=== PATIENT | female | born 2000 | race Caucasian/White ===

== ENCOUNTER 2021-03-19 15:58 | Inpatient (IN) | payer MEDICAID, SELFPAY ==
--- NOTE | 2021-03-19 16:30 | ED.C_ITS ---
HPI - Psych General: Chief Complaint: Psychiatric Symptoms Stated Complaint: HALLUCINATING/ VIOLENT Time Seen by Provider: 03/19/21 16:21 History of Present Illness: HPI Narrative: 20-year-old female comes in she is having auditory and visual hallucinations at home. She has been violent towards others. Here she is very difficult to get any responses from. She does have some inappropriate reactions at high. She denies homicidal ideation there are affidavits on the chart. She denies any auditory visual hallucinations. She denies being on any medications and states she has not previously been hospitalized for any psychiatric issues. MD complaint: altered mental status and other (violent behavior) Onset (ago): unknown Duration: constant History of same: Yes Relieving factors: none Exacerbating factors: none Associated psychiatric symptoms: homicidal ideation Associated symptoms: Reports auditory hallucinations, visual hallucinations and delusions Treatments prior to arrival: none Review of Systems Const: Denies: fever(s), chills, body aches, change in appetite, fatigue or malaise ENMT: Denies: throat pain, ear or mastoid pain, nasal discharge or nasal congestion Card: Denies: chest pain, edema, dyspnea on exertion or orthopnea Resp: Denies: dyspnea, productive cough or non-productive cough GI: Denies: abdominal pain, nausea, vomiting, hematemesis, diarrhea or constipation : Denies: flank pain, difficulty voiding, dysuria, urinary frequency or urinary urgency Skin/Breast: Denies: rash or pruritus Psych: Reports: visual hallucinations and auditory hallucinations Physical Exam Const: COMMON NORMALS: no acute distress GENERAL APPEARANCE: cooperative and comfortable ORIENTATION/CONSCIOUSNESS: Yes awake, Yes oriented to person, Yes oriented to place and Yes oriented to time HENMT: COMMON NORMALS: normocephalic, atraumatic and hearing grossly normal bilaterally HEAD & SCALP: normocephalic and atraumatic Neck/C-Spine: COMMON NORMALS: no JVD Resp: COMMON NORMALS: normal respiratory effort, No retractions, No use of accessory muscles and clear to auscultation bilaterally AUSCULTATION: clear to auscultation bilaterally Cardio: COMMON NORMALS: no JVD, regular rate, regular rhythm and No murmurs present (Cardio) RATE: regular rate RHYTHM: regular rhythm GI: COMMON NORMALS: Soft to palpation and No hepatosplenomegaly present AUSCULTATION: Yes normoactive bowel sounds PALPATION: Yes Soft to palpation, No Tenderness to palpation present (GI), No Guarding due to palpation present (GI) and Yes No hepatosplenomegaly present Extremity: COMMON NORMALS: normal to inspection, capillary refill normal, no clubbing, cyanosis or edema, no calf tenderness and no pedal edema Neuro: SENSORIUM/ORIENTATION: Yes oriented to person, Yes oriented to place and Yes oriented to time Psych: THOUGHT CONTENT: Yes delusions Skin: COMMON NORMALS: no rashes or lesions noted GENERAL SKIN EXAM: no rashes or lesions noted Course Vital Signs: Vital signs: Vital Signs Temperature 98.1 F 03/21/21 14:00 Pulse Rate 72 03/21/21 14:00 Respiratory Rate 18 03/22/21 06:00 Blood Pressure 99/66 03/21/21 14:00 Pulse Oximetry 98 03/21/21 14:00 MDM - Psych MDM Narrative: Medical decision making narrative: Patient acutely psychotic with auditory and visual hallucinations and occasional violent behaviors. Discussed with Dr. Figueroa will admit. Discharge Plan Discharge Patient Disposition: Admitted As Inpatient Admit Provider: Kade Figueroa Clinical Impression: Acute psychosis, Chronic schizophrenia Condition: Stable Coding Level of Care Code ED Power And Recovery Supervisor for Chg Fwd Exam Comprehensive
[2021-03-19 16:55] VITALS: BP 104/53; PULSE 83; RESP 18; TEMP 36.6; O2SAT 98; BMI 18.6
[2021-03-19 17:10] VITALS: BP 104/53; PULSE 83; RESP 18; TEMP 36.6; O2SAT 98
[2021-03-19 17:40] LABS: Basophils # 0.1 10^3/uL (0.0-0.1); Basophils % 0.5 %; Eosinophils # 0.2 10^3/uL (0.0-0.8); Eosinophils % 1.4 %; Hemoglobin 14.2 g/dL (11.5-15.3); Lymphocytes # 1.9 10^3/uL (1.5-6.5); Lymphocytes % 17.7 %; Mean Corpuscular HGB Conc 33.8 g/dL (30.0-36.0); Mean Corpuscular Hemoglobin 30.1 pg (28.0-34.0); Mean Corpuscular Volume 89.2 fl (81-99); Mean Platelet Volume 11.7 fL (7.4-10.4); Monocytes # 0.9 10^3/uL (0.2-0.9); Monocytes % 8.1 %; Neutrophils # 7.66 10^3/uL (1.8-8.0); Neutrophils % 71.9 %; Nucleated Red Blood Cells % 0 %; Platelet Count 266 10^3/cmm (130-400); Red Blood Count 4.71 10^6/uL (4.1-5.3); Red Cell Distribution Width 12.2 % (12.1-15.1); White Blood Count 10.7 10^3/uL (4.5-13.0)
[2021-03-19 18:02] LABS: Acetaminophen < 5.0 ug/mL (10-30); Alanine Aminotransferase 10 U/L (0-33); Albumin Level 4.4 g/dL (3.5-5.2); Alkaline Phosphatase 78 IU/L (35-105); Anion Gap 15.9 (5-19); Aspartate Amino Transferase 12 U/L (0-32); Blood Urea Nitrogen 9 mg/dL (6-20); Calcium 9.1 mg/dL (8.5-10.5); Carbon Dioxide 25 mmol/L (22-29); Chloride 106 mmol/L (98-107); Globulin 2.8 g/dL (1.3-4.6); Glomerular Filtration Rate 127.5 mL/min (90-130); Glucose 87 mg/dL (65-115); Osmolality Calculated 294 mOsm/kg (285-295); Potassium 3.9 mmol/L (3.5-5.1); Salicylate < 0.3 mg/dL (3-10); Sodium 143 mmol/L (136-145); Total Bilirubin 0.4 mg/dL (0.15-1.2); Total Protein 7.2 g/dL (6.6-8.7)
--- NOTE | 2021-03-19 18:02 | PC.NURSE ---
called report to adams love
[2021-03-19 18:05] LABS: HCG, Serum Qual Negative (Negative)
--- NOTE | 2021-03-19 20:54 | PC.NURSE ---
Admission 20-year-old female comes in she is having auditory and visual hallucinations at home. She has been violent towards others. Here she is very difficult to get any responses from. She does have some inappropriate reactions at high. She denies homicidal ideation there are affidavits on the chart. She denies any auditory visual hallucinations. She denies being on any medications and states she has not previously been hospitalized for any psychiatric issues. On unit patient remains the same. Responses to questions are very delayed and usually a vauge no. Denies any AVH but appears to be experiencing internal stimuli. Denies any AVH. Denies having a diagnosis. Denies being on meds. Denies any substance or alcohol use ever. Has poor eye contact, stares blankly. Bilateral feet have red bug bites , none are open, denies itching. After admission assessment patient went to bed and is currently resting with eyes closed.
[2021-03-19 20:56] VITALS: BP 88/54; PULSE 61; RESP 14; TEMP 36.6; O2SAT 98
[2021-03-20 06:00] VITALS: BP 93/57; PULSE 63; RESP 15; TEMP 36.8; O2SAT 96
--- NOTE | 2021-03-20 06:06 | PC.NURSE ---
Patient has remained in bed throughout night, resting with eyes closed.
--- NOTE | 2021-03-20 13:24 | NPU.GN ---
[facility] Topic: Coping Checkers General Mood of Group: Evonne did not attend group today. She was sleeping. This process description writer tried to engage with patient about [facility] services and client is not mentally capable at this time to even hold a conversation, decide anything, or deal with paperwork. She would vaguely respond and then smile and started laughing in the middle of conversation, and she tilts her head and looks way as she is having auditory or maybe visual hallucinations maybe both. She is in no mental state to make any decisions at this time and is not mentally stable at this time.
[2021-03-20 14:00] VITALS: BP 99/66; PULSE 72; RESP 18; TEMP 36.7; O2SAT 98
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
--- NOTE | 2021-03-20 17:37 | PC.NURSE ---
Patient [place] Asked patient if she wanted some water, but asked if we had some blood. Asked patient if is was a vampire and she just giggled. Patient was using her spork from dinner to write with mustard from her tray.
[2021-03-20] MEDS: lithium carbonate 300 mg Capsule PO (18:17)
--- NOTE | 2021-03-20 18:38 | PC.NURSE ---
Patient standing in hallway in front of the nurses station. Holding her right breast with a finger tapping her chin. Asked her if she needing anything. She did not respond. Asked her if she knew where she was, she responded no. Asked if she knew what day it was or how she got here, she shook her head. Briefly re-oriented her to time. place and situation.
[2021-03-20 20:07] VITALS: RESP 15
--- NOTE | 2021-03-20 20:07 | PC.NURSE ---
Pt. refused vitals.
--- NOTE | 2021-03-20 22:22 | PC.NURSE ---
Patient continues to have bizarre thought process this evening. Only spoke to this nurse when directly questioned. Answers continue to be delayed and pressured. Initially requested meds for anxiety and sleep but refused after meds were taken to patient. Patient gives blank stare most of time that nurse speaks about care. Patient awake, resting in bed at this time.
--- NOTE | 2021-03-21 00:25 | PC.NURSE ---
Patient up. Attempted to go into another patient's room. Was resistive to staff redirection. Appears paranoid at this time. Did come away from room after much encouragement. Stated she was very tired but would not go to her bed. Patient sitting at unit phone talking into phone that is presently turned off.
[2021-03-21 06:00] VITALS: RESP 15
[2021-03-21] MEDS: lithium carbonate 300 mg Capsule PO ×2 (07:56→17:41)
--- NOTE | 2021-03-21 10:37 | PC.NURSE ---
med refusal pt refused to take her abilify this morning, nurse taught pt about the med, still refused, may take later today she stated. will continue to monitor pt.
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
[2021-03-21 14:00] VITALS: BP 99/66; PULSE 72; RESP 15; TEMP 36.7; O2SAT 98
[2021-03-21 19:56] VITALS: RESP 18
[2021-03-22 06:00] VITALS: RESP 18
--- NOTE | 2021-03-22 06:30 | PC.NURSE ---
REFUSED VITALS Patient refused vitals. Respirations were taken.
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
--- NOTE | 2021-03-22 13:10 | NPU.GN ---
[facility] Topic:Coping Skills AMY General Mood of Group:The patient did come to group, the patient did participate to an extent, She was very quiet. She was dressed and well groomed. She was coerced to participate, she did not participate on her own free will.
[2021-03-22] MEDS: nicotine 2 mg Gum BUCCAL (13:17)
[2021-03-22 14:00] VITALS: BP 99/66; PULSE 72; RESP 18; TEMP 36.7; O2SAT 98
[2021-03-22] MEDS: lithium carbonate 300 mg Capsule PO ×2 (14:49→20:15)
[2021-03-22 21:33] VITALS: RESP 17
--- NOTE | 2021-03-22 21:34 | PC.NURSE ---
REFUSED VITALS Patient refused vitals. Respirations were taken
[2021-03-23 06:00] VITALS: RESP 17
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
[2021-03-23 14:00] VITALS: BP 117/72; PULSE 90; RESP 18; TEMP 36.8; O2SAT 97
--- NOTE | 2021-03-23 15:13 | PC.NURSE ---
Patient Refused all meds today. Patient has refused all meds today. Patient then came to the nurses station and stated that she feels well and wants to know what she needs to do to go home. Staff stated she needs to take medications. This will help patients mood and well-being. Patient told staff to Go fuck yourselves . And walked away from nurses station.
[2021-03-23] MEDS: lithium carbonate 300 mg Capsule PO ×2 (18:36→21:09)
[2021-03-23 20:51] VITALS: RESP 18
[2021-03-23] MEDS: trazodone 50 mg Tablet PO (21:09)
[2021-03-23] MEDS: hyDROXYzine 25 mg Capsule 50 MG PO (22:43)
--- NOTE | 2021-03-23 23:07 | PC.NURSE ---
Pt observed sitting on her bed with her door open naked. Patient was in view of peers that were walking in the hallway. Patient instructed to put her scrubs back and her door was shut by staff. This Nurse went to pt's room and she still was not dressed. This Nurse spoke with patient regarding her affect on the other patient's by putting them in a situation to see her without clothes. Patient eventually agreed to put her scrubs back on. she was also compliant with med administration this shift. No other behavior issues after this incident.
[2021-03-24 06:00] VITALS: RESP 17; BMI 18.6
[2021-03-24] MEDS: ARIPiprazole 10 mg Tablet 5 MG PO (09:35)
[2021-03-24] MEDS: lithium carbonate 300 mg Capsule PO ×3 (09:36→21:08)
--- NOTE | 2021-03-24 13:35 | PC.NURSE ---
Patient lying in bed with eyes closed, nude with sheet wrapped around her mid-section, able to see her legs, arms and back. Instructed patient she needed to dress due to the males on the unit, for her safety. She verbalized she understood and that she would comply.
[2021-03-24 14:00] VITALS: BP 106/64; PULSE 75; RESP 16; TEMP 36.2; O2SAT 97
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
[2021-03-24 21:01] VITALS: RESP 15
[2021-03-25 06:00] VITALS: BP 108/68; PULSE 80; RESP 15; TEMP 36.6; O2SAT 96
[2021-03-25] MEDS: ARIPiprazole 10 mg Tablet 5 MG PO (09:59)
[2021-03-25] MEDS: lithium carbonate 300 mg Capsule PO ×3 (10:00→20:30)
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
--- NOTE | 2021-03-25 13:35 | NPU.GN ---
[facility] Topic:Psychiatric Education General Mood of Group: Evonne did attend or participate in group today. Evonne does not seem to be mentally stable she is very soft spoken and is timid and stays to her self. She did participate in group with the aide of this racebook writer.
[2021-03-25 14:00] VITALS: BP 110/69; PULSE 70; RESP 16; TEMP 36.7; O2SAT 100
[2021-03-25 21:22] VITALS: BP 98/57; PULSE 70; RESP 15; TEMP 37.2; O2SAT 98
[2021-03-26 06:00] VITALS: RESP 16
--- NOTE | 2021-03-26 12:45 | NPU.GN ---
[facility] Topic:roup Topic: What are we Thankful For General Mood of Group: Evonne did attend and participated in group activity today. Evonne seemed to be able to hold more conversation and be more oriented with this advertising copywriter and on group activity and topic today. This advertising copywriter has seen some improvement with this patient demeanor and mental status.
[2021-03-26 14:00] VITALS: BP 118/76; PULSE 81; RESP 16; TEMP 36.8; O2SAT 98
--- NOTE | 2021-03-26 14:11 | PC.NURSE ---
med refusal Pt refused to take morning meds lithium and abilify. Have tried to redirect and pass the medications again, failed a second time. Will continue to monitor.
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
[2021-03-26] MEDS: nicotine 2 mg Gum BUCCAL (17:55)
[2021-03-26] MEDS: lithium carbonate 300 mg Capsule PO (17:55)
[2021-03-26 21:49] VITALS: RESP 15
[2021-03-27 06:00] VITALS: BP 99/68; PULSE 92; RESP 15; TEMP 36.8; O2SAT 99
[2021-03-27] MEDS: lithium carbonate 300 mg Capsule PO ×2 (12:27→20:28)
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
--- NOTE | 2021-03-27 13:18 | NPU.GN ---
[facility] Topic:Group Topic: Pie of Emotions, Coping, and Supports General Mood of Group: Evonne did attend group. She did not participate as she starred off into air or out the window. Evonne seemed less alert or social today in group.
[2021-03-27 14:00] VITALS: BP 120/79; PULSE 104; RESP 18; TEMP 36.6; O2SAT 97
[2021-03-27] MEDS: ARIPiprazole Maintena 400 MG IM (15:38)
[2021-03-27 21:06] VITALS: BP 113/76; PULSE 100; RESP 16; O2SAT 99
[2021-03-28 06:00] VITALS: RESP 16
[2021-03-28] MEDS: ARIPiprazole 10 mg Tablet 5 MG PO (08:52)
[2021-03-28] MEDS: lithium carbonate 300 mg Capsule PO ×3 (08:52→20:42)
[2021-03-28 14:00] VITALS: BP 116/68; PULSE 98; RESP 16; TEMP 36.7; O2SAT 99
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
--- NOTE | 2021-03-28 16:34 | PC.NURSE ---
Patient attempting to make phone call and then began banging ip network architect on phone and wall multiple times. Went out to talk with patient and she was upset because her mother was not answering the phone, and occasional random statements. I can't get my medicine because I'm not 21. My mom says she'll take all of her savings and get me a townhouse. No one is coming to pick me up I need a ride.
--- NOTE | 2021-03-28 17:43 | PC.NURSE ---
My parents don't trust me anymore so I can't go home because I smoke cigarettes. You can just give me blanket and I can leave. I'm an adult since I'm 18. Patient keeps staring at ceiling and repeating 'I just need'. I don't need sleep, I need a blanket long pause 'A blanket, a bible and a prescription and I can find somewhere to live.
[2021-03-28 19:16] VITALS: BP 112/70; PULSE 96; RESP 18; TEMP 36.7; O2SAT 100
[2021-03-28] MEDS: hyDROXYzine 25 mg Capsule 50 MG PO (20:42)
[2021-03-28] MEDS: trazodone 50 mg Tablet PO (20:43)
[2021-03-29 05:36] VITALS: RESP 16
[2021-03-29] MEDS: lithium carbonate 300 mg Capsule PO ×3 (09:47→20:26)
[2021-03-29] MEDS: ARIPiprazole 10 mg Tablet 5 MG PO (09:47)
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
[2021-03-29 14:00] VITALS: BP 96/61; PULSE 105; RESP 20; TEMP 37; O2SAT 97
[2021-03-29] MEDS: hyDROXYzine 25 mg Capsule 50 MG PO (20:26)
[2021-03-29 20:29] VITALS: RESP 18
[2021-03-29] MEDS: trazodone 50 mg Tablet PO (22:11)
[2021-03-30 06:00] VITALS: RESP 15
[2021-03-30] MEDS: ARIPiprazole 10 mg Tablet 5 MG PO (10:24)
[2021-03-30] MEDS: lithium carbonate 300 mg Capsule PO ×3 (10:24→21:42)
[2021-03-30 14:00] VITALS: RESP 18
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
[2021-03-30] MEDS: lurasidone 20 mg Tablet PO (17:38)
--- NOTE | 2021-03-30 17:40 | PC.NURSE ---
patient refused vitals.
[2021-03-30 19:44] VITALS: BP 92/57; PULSE 93; RESP 17; TEMP 36.7; O2SAT 98
[2021-03-30] MEDS: trazodone 50 mg Tablet PO (21:42)
[2021-03-30] MEDS: hyDROXYzine 25 mg Capsule 50 MG PO (21:42)
[2021-03-31 06:00] VITALS: RESP 16; BMI 18.6
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
[2021-03-31] MEDS: lithium carbonate 300 mg Capsule PO ×3 (10:13→21:05)
[2021-03-31 14:00] VITALS: BP 112/72; PULSE 90; RESP 17; TEMP 36.2; O2SAT 99
[2021-03-31] MEDS: lurasidone 20 mg Tablet PO (18:17)
[2021-03-31] MEDS: trazodone 50 mg Tablet PO (21:21)
[2021-03-31 21:40] VITALS: BP 109/74; PULSE 105; RESP 18; TEMP 36.9; O2SAT 96
--- NOTE | 2021-03-31 21:44 | PC.NURSE ---
Patient was standing in the dayroom eating a bag of popcorn for snack. Staff asked patient if it was okay to get her vitals patient agreed and was cooperative. Staff asked patient how her day was and patient replied, It was good day. I talked to the Doctor more today. Staff told patient was good that she was finely talking more. Patient was very happy and smiling and overall in a good mood. Patient also stated, I feel better. I feel more above the surface. Staff agreed with the patient that she does seem in a better mood and is talking more to staff and talking more about her feeling with staff.
[2021-04-01 06:00] VITALS: BP 101/67; PULSE 85; RESP 18; TEMP 36.9; O2SAT 95
[2021-04-01] MEDS: lithium carbonate 300 mg Capsule PO ×3 (09:35→20:33)
[2021-04-01] MEDS: hyDROXYzine 25 mg Capsule 50 MG PO (12:03)
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
[2021-04-01 14:00] VITALS: BP 133/77; PULSE 76; RESP 18; TEMP 36; O2SAT 98
--- NOTE | 2021-04-01 14:21 | NPU.GN ---
[facility] Topic:Coping Mechanisms General Mood of Group: Evonne did attend and participate in group. She was her normal quiet and often smiled self. Her hygiene was good.
[2021-04-01] MEDS: lurasidone 20 mg Tablet 40 MG PO (17:50)
[2021-04-01 21:21] VITALS: RESP 16
[2021-04-02 06:35] VITALS: BP 112/70; PULSE 80; RESP 16; TEMP 36.9; O2SAT 98
[2021-04-02] MEDS: lithium carbonate 300 mg Capsule PO ×3 (09:40→21:08)
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
--- NOTE | 2021-04-02 13:38 | NPU.GN ---
[facility] Topic:Depression [place] General Mood of Group: Evonne did attend and participate in group. She was very quiet in group and her demeanour has not changed. She had good hygiene.
[2021-04-02 14:00] VITALS: BP 114/77; PULSE 94; RESP 18; TEMP 36; O2SAT 99
[2021-04-02] MEDS: lurasidone 20 mg Tablet 40 MG PO (17:10)
[2021-04-02] MEDS: trazodone 50 mg Tablet PO (21:36)
[2021-04-02 22:00] VITALS: RESP 17
[2021-04-03 06:00] VITALS: RESP 15
[2021-04-03 07:52] LABS: Lithium 0.7 mmol/L (0.6-1.2)
[2021-04-03 08:31] LABS: Thyroid Stimulating Hormone 1.39 uIU/mL (0.27-4.20)
[2021-04-03] MEDS: lithium carbonate 300 mg Capsule PO ×3 (10:16→20:35)
--- NOTE | 2021-04-03 13:30 | NPU.GN ---
[facility] Topic:[place] Activity General Mood of Group: Evonne did not attend group this morning as she was walking around the halls.
[2021-04-03 14:00] VITALS: BP 114/77; PULSE 94; RESP 15; TEMP 36; O2SAT 99
[2021-04-03 14:09] VITALS: BP 104/63; PULSE 79; RESP 16; TEMP 36.2; O2SAT 97
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
[2021-04-03] MEDS: lurasidone 20 mg Tablet 40 MG PO (17:52)
[2021-04-03 22:00] VITALS: RESP 15
[2021-04-04 06:00] VITALS: RESP 15
[2021-04-04] MEDS: lithium carbonate 300 mg Capsule PO ×3 (09:01→21:18)
[2021-04-04 14:00] VITALS: PULSE 104; RESP 16; TEMP 36.9; O2SAT 99
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
[2021-04-04] MEDS: lurasidone 20 mg Tablet 40 MG PO (18:21)
[2021-04-04 21:24] VITALS: RESP 18
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
[2021-04-05 06:00] VITALS: RESP 16
[2021-04-05] MEDS: lithium carbonate 300 mg Capsule PO ×3 (08:46→21:05)
[2021-04-05 14:00] VITALS: BP 114/69; PULSE 98; RESP 16; TEMP 36.9; O2SAT 98
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
[2021-04-05] MEDS: lurasidone 20 mg Tablet 40 MG PO (16:50)
[2021-04-05 21:13] VITALS: BP 120/74; PULSE 87; RESP 18; TEMP 37; O2SAT 99
[2021-04-06 06:00] VITALS: BP 116/74; PULSE 88; RESP 18; TEMP 36.8; O2SAT 97
[2021-04-06] MEDS: lithium carbonate 300 mg Capsule PO ×3 (08:47→20:44)
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
[2021-04-06 14:00] VITALS: BP 99/59; PULSE 87; RESP 17; TEMP 37.1; O2SAT 96
[2021-04-06] MEDS: lurasidone 20 mg Tablet 40 MG PO (16:20)
[2021-04-06 22:00] VITALS: RESP 17
[2021-04-07 05:35] VITALS: BMI 18.6
[2021-04-07 06:00] VITALS: RESP 16
[2021-04-07] MEDS: lithium carbonate 300 mg Capsule PO ×3 (07:51→20:22)
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
[2021-04-07 14:00] VITALS: BP 108/60; PULSE 77; RESP 20; TEMP 36.9; O2SAT 95
[2021-04-07 20:05] VITALS: RESP 16
[2021-04-07] MEDS: trazodone 50 mg Tablet PO (20:21)
[2021-04-07] MEDS: hyDROXYzine 25 mg Capsule 50 MG PO (20:21)
--- NOTE | 2021-04-07 20:25 | PC.NURSE ---
pt requested sleep and anxiety meds. trazodone 50mg po for sleep and vistaril 50mg po for anxiety given.
--- NOTE | 2021-04-07 22:00 | PC.NURSE ---
pt resting quietly with both eyes closed.
[2021-04-08 06:00] VITALS: BP 130/84; PULSE 75; RESP 17; O2SAT 97
[2021-04-08] MEDS: lithium carbonate 300 mg Capsule PO ×3 (09:04→19:51)
[2021-04-08 14:00] VITALS: BP 106/69; PULSE 81; RESP 16; TEMP 36.6; O2SAT 98
[2021-04-08] MEDS: lurasidone 80 mg Tablet PO (16:31)
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
[2021-04-08] MEDS: nicotine 2 mg Gum BUCCAL (18:35)
[2021-04-08 21:38] VITALS: RESP 15
[2021-04-09] MEDS: nicotine 2 mg Gum BUCCAL ×2 (05:25→20:08)
[2021-04-09 06:00] VITALS: RESP 16
[2021-04-09] MEDS: lithium carbonate 300 mg Capsule PO ×3 (08:25→20:07)
[2021-04-09 14:00] VITALS: BP 92/54; PULSE 82; RESP 16; TEMP 36.6; O2SAT 97
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
[2021-04-09] MEDS: lurasidone 80 mg Tablet PO (17:56)
[2021-04-09] MEDS: trazodone 50 mg Tablet PO (20:08)
[2021-04-09 21:16] VITALS: BP 118/81; PULSE 98; RESP 16; O2SAT 98
[2021-04-10 06:00] VITALS: BP 112/84; PULSE 78; RESP 17; O2SAT 97
[2021-04-10] MEDS: lithium carbonate 300 mg Capsule PO ×3 (08:43→20:57)
[2021-04-10 14:00] VITALS: BP 116/60; PULSE 90; RESP 16; TEMP 36.7; O2SAT 100
[2021-04-10] MEDS: lurasidone 80 mg Tablet PO (16:20)
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
[2021-04-10] MEDS: nicotine 2 mg Gum BUCCAL (20:56)
[2021-04-10] MEDS: hyDROXYzine 25 mg Capsule 50 MG PO (20:57)
[2021-04-10 22:00] VITALS: BP 104/68; PULSE 109; RESP 18; TEMP 36.5; O2SAT 99
[2021-04-11 06:00] VITALS: BP 106/57; PULSE 86; RESP 18; TEMP 36.3; O2SAT 96
[2021-04-11] MEDS: lithium carbonate 300 mg Capsule PO ×3 (08:58→21:05)
[2021-04-11 13:43] VITALS: BP 85/52; PULSE 100; RESP 17; TEMP 36.5; O2SAT 98
[2021-04-11] MEDS: lurasidone 20 mg Tablet 40 MG PO (17:46)
[2021-04-11] MEDS: lurasidone 80 mg Tablet PO (17:47)
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
[2021-04-11] MEDS: hyDROXYzine 25 mg Capsule 50 MG PO (21:05)
[2021-04-11 22:00] VITALS: BP 85/52; PULSE 100; RESP 17; TEMP 36.5; O2SAT 98
[2021-04-12 00:06] VITALS: RESP 16
[2021-04-12 06:00] VITALS: RESP 16
[2021-04-12] MEDS: lithium carbonate 300 mg Capsule PO ×3 (09:01→21:28)
[2021-04-12 13:12] VITALS: BP 92/60; PULSE 84; RESP 17; TEMP 36.8; O2SAT 97
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
[2021-04-12] MEDS: lurasidone 20 mg Tablet 40 MG PO (16:08)
[2021-04-12] MEDS: lurasidone 80 mg Tablet PO (16:09)
[2021-04-12 19:53] VITALS: BP 108/62; PULSE 77; RESP 16; TEMP 36.4; O2SAT 97
[2021-04-12] MEDS: hyDROXYzine 25 mg Capsule 50 MG PO (21:28)
[2021-04-13 06:00] VITALS: BP 107/55; PULSE 76; RESP 14; TEMP 36.7; O2SAT 97
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
[2021-04-13] MEDS: lithium carbonate 300 mg Capsule PO ×3 (08:55→21:06)
[2021-04-13 14:00] VITALS: BP 110/63; PULSE 89; RESP 16; TEMP 37.1; O2SAT 97
[2021-04-13] MEDS: lurasidone 80 mg Tablet PO (16:25)
[2021-04-13] MEDS: lurasidone 20 mg Tablet 40 MG PO (16:25)
[2021-04-13] MEDS: trazodone 50 mg Tablet PO (21:06)
[2021-04-13 21:18] VITALS: BP 89/58; PULSE 93; RESP 18; TEMP 36.8; O2SAT 97
[2021-04-14 06:00] VITALS: BP 80/58; PULSE 77; RESP 18; TEMP 36.8; O2SAT 99; BMI 18.6
[2021-04-14] MEDS: lithium carbonate 300 mg Capsule PO ×3 (08:36→20:54)
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
[2021-04-14] MEDS: nicotine 2 mg Gum BUCCAL (10:44)
[2021-04-14 14:00] VITALS: BP 105/74; PULSE 96; RESP 20; TEMP 36.5; O2SAT 99
[2021-04-14] MEDS: lurasidone 20 mg Tablet 40 MG PO (16:24)
[2021-04-14] MEDS: lurasidone 80 mg Tablet PO (16:24)
[2021-04-14 20:25] VITALS: BP 101/58; PULSE 87; RESP 16; TEMP 36.9; O2SAT 99
[2021-04-15 06:00] VITALS: BP 93/50; PULSE 85; RESP 16; TEMP 36.7; O2SAT 98
[2021-04-15] MEDS: nicotine 2 mg Gum BUCCAL (08:47)
[2021-04-15] MEDS: lithium carbonate 300 mg Capsule PO ×2 (08:47→14:40)
--- NOTE | 2021-04-15 12:39 | NPU.GN ---
[facility] Group Topic:[place] / Discussion General Mood of Group: Evonne did not attend group this morning she wanted to sleep. This functional tester typewriters did meet with Evonne after lunch and started the [facility] New Patient paper work packet. It is not completed as she just randomly got up left and went and laid down for a nap. This functional tester typewriters spoke with social work and gave the update on patient. toll test desk worker is going to try to complete the [facility] New Patient Paperwork with patient.
[2021-04-15 14:00] VITALS: BP 99/65; PULSE 87; RESP 18; TEMP 36.8; O2SAT 98
[2021-04-15] MEDS: lurasidone 80 mg Tablet PO (16:16)
[2021-04-15] MEDS: lurasidone 20 mg Tablet 40 MG PO (16:16)
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
[2021-04-15 17:23] VITALS: BP 99/65; PULSE 87; RESP 18; TEMP 36.8; O2SAT 98
== END 2021-04-15 17:37 | disposition home or self-care (01) | DRG 885 ==
LOC: ER 17:11 → NP 17:29
PROVIDERS: Physician Assistant; Psychiatry & Neurology Psychiatry; Admitting Provider Psychiatry & Neurology Psychiatry; Emergency Provider Family Medicine; Visit Provider Psychiatry & Neurology Psychiatry
DX: F23 Brief psychotic disorder (principal); R45.6 Violent behavior; Z62.819 Personal history of unspecified abuse in childhood; Z62.898 Other specified problems related to upbringing; Z91.14 Patient's other noncompliance with medication regimen
CPT/HCPCS: 36415; 80053; 80178; 80307; 84443; 84703; 85025; 96372; 97150; 97165; 99285

== ENCOUNTER → 2021-05-01 11:55 | Outpatient (BNVA) | payer MEDICAID, SELFPAY | PROVIDERS: Visit Provider Nurse Practitioner | DX: F20.89 Other schizophrenia (principal); F17.210 Nicotine dependence, cigarettes, uncomplicated | CPT/HCPCS: 99215 ==

== ENCOUNTER → 2021-05-31 13:34 | Outpatient (BNVA) | payer MEDICAID, SELFPAY | PROVIDERS: Visit Provider Nurse Practitioner | DX: F20.89 Other schizophrenia (principal); F17.210 Nicotine dependence, cigarettes, uncomplicated | CPT/HCPCS: 99214 ==

== ENCOUNTER 2022-01-08 15:45 | Inpatient (IN) | payer MEDICAID, SELFPAY ==
[2022-01-08 15:54] VITALS: BP 94/63; PULSE 93; RESP 16; TEMP 36.7; O2SAT 98
--- NOTE | 2022-01-08 16:14 | ED.C_ITS ---
Documented by User: AUSTIN Brumfield 01/09/22 08:34 HPI - Psych General: Chief Complaint: Psychiatric Symptoms Stated Complaint: Psych eval Time Seen by Provider: 01/08/22 16:14 History of Present Illness: Patient is a 21-year-old female who comes to the ED via EMS for psych evaluation. History of acute psychosis and schizophrenia. Patient states she got into a fight with her mother today at home. Mother called EMS and had patient brought here to the ED for evaluation. Patient is a poor historian and is giving very short answers. She states that she does not currently take any medications. She denies HI and SI. Associated symptoms: Deny auditory hallucinations, homicidal ideation or suicidal ideation Review of Systems Const: Denies: fever(s), chills or fatigue Eyes: Denies: change in vision or eye discomfort ENMT: Denies: throat pain, odynophagia, nasal discharge or nasal congestion Card: Denies: chest pain, palpitations, edema, swelling of feet/ankles, dyspnea on exertion or orthopnea Resp: Denies: dyspnea, productive cough or non-productive cough GI: Denies: abdominal pain, nausea, vomiting, diarrhea, constipation or hematochezia : Denies: flank pain, dysuria or hematuria Musc: Denies: neck pain, back pain or extremity swelling Skin/Breast: Denies: rash or new lesions Neuro: Denies: headache(s), numbness in extremities or weakness in extremities Psych: Denies: auditory hallucinations, suicidal ideation or homicidal ideation PFS ED PFSH: Medical History Nicotine dependence, cigarettes, uncomplicated Other schizophrenia Psychiatric care Family History Other Diabetes Social History Smoking and tobacco status: current every day smoker cigarettes Packs smoked per day: 1 Years cigarettes smoked: 3 Second hand smoke exposure: Yes Alcohol intake: never Adopted: No Caregiver/support person: No Lives independently: No Household members: other Details: grandmother Housing: House Marital status: Single Number of children: 0 Highest education level completed: High School Graduate service: No Current occupational status: disabled Current occupational exposures/hazards: No Pets and animals: Yes Pets & animals: dog(s) History of recent travel: No Leisure activites: art and reading Sexually active: No Current gender identity: Female Arabella/Bahai: None Special arabella needs: No Agree to transfusion: Yes Financial difficulty paying for basics: Not Very Hard Female Reproductive History: Date of last menstrual period: 08/09/21 Spontaneous abortions: No Physical Exam Const: COMMON NORMALS: patient oriented x3 and alert GENERAL APPEARANCE: cooperative HENMT: COMMON NORMALS: normocephalic HEAD & SCALP: normocephalic MOUTH: Normal oral and palatal mucosa present THROAT: posterior oropharynx normal and uvula midline Neck/C-Spine: COMMON NORMALS: supple GENERAL: Yes normal visual inspection Resp: COMMON NORMALS: normal respiratory effort, No retractions, No use of accessory muscles and clear to auscultation bilaterally AUSCULTATION: clear to auscultation bilaterally Cardio: COMMON NORMALS: regular rate, regular rhythm, S1 normal heart sound present, S2 normal heart sound present, No gallops present (Cardio), No clicks present (Cardio), No murmurs present (Cardio) and Peripheral pulses 2+ throughout RATE: regular rate RHYTHM: regular rhythm HEART SOUNDS: S1 normal heart sound present and S2 normal heart sound present PERIPHERAL PULSES: Peripheral pulses 2+ throughout GI: COMMON NORMALS: Normal to inspection, nondistended, normoactive bowel sounds present, Soft to palpation, non-tender and no masses PALPATION: Yes Soft to palpation : COMMON NORMALS: Yes no CVA tenderness BLADDER/KIDNEY EXAM: Yes no CVA tenderness Back/Pelvis: COMMON NORMALS: no CVA tenderness Extremity: COMMON NORMALS: normal to inspection Neuro: COMMON NORMALS: patient oriented x3 SENSORIUM/ORIENTATION: Yes alert GAIT: Yes Normal gait present Psych: COMMON NORMALS: mental status grossly normal and speech normal APPEARANCE: Yes grossly normal ATTITUDE: Yes calm and Yes Withdrawn affect present ACTIVITY/MOTOR BEHAVIOR: Yes Avoids eye contact (attititude/behavior) SPEECH: Yes normal speech MOOD & AFFECT: Yes Flat affect present THOUGHT CONTENT: No Suicidality present and No Homicidality present Skin: GENERAL SKIN EXAM: dry skin Course Vital Signs: Vital signs: Vital Signs Temperature 98.2 F 01/09/22 06:00 Pulse Rate 113 H 01/09/22 06:00 Respiratory Rate 18 01/09/22 06:00 Blood Pressure 138/76 01/08/22 22:00 Pulse Oximetry 96 01/09/22 06:00 Oxygen Delivery Me thod 01/08/22 22:00 MDM - Psych Lab Data I reviewed the patient's lab results. : 01/08/22 16:24 01/08/22 16:24 Laboratory Results WBC 12.1 10^3/uL (4.0-10.0) H 01/08/22 16:24 RBC 4.60 10^6/uL (4.1-5.3) 01/08/22 16:24 Hgb 14.3 g/dL (11.5-15.3) 01/08/22 16:24 Hct 41.6 % (37.0-47.0) 01/08/22 16:24 MCV 90.4 fl (81-99) 01/08/22 16:24 MCH 31.1 pg (28.0-34.0) 01/08/22 16:24 MCHC 34.4 g/dL (30.0-36.0) 01/08/22 16:24 RDW 12.4 % (12.1-15.1) 01/08/22 16:24 Plt Count 248 10^3/cmm (130-400) 01/08/22 16:24 MPV 10.8 fL (7.4-10.4) H 01/08/22 16:24 Neut % (Auto) 70.7 % 01/08/22 16:24 Lymph % (Auto) 18.7 % 01/08/22 16:24 [place] % (Auto) 8.3 % 01/08/22 16:24 Eos % (Auto) 1.7 % 01/08/22 16:24 Baso % (Auto) 0.3 % 01/08/22 16:24 Neut # (Auto) 8.54 10^3/uL (1.8-7.7) H 01/08/22 16:24 Lymph # (Auto) 2.3 10^3/uL (0.8-4.8) 01/08/22 16:24 [place] # (Auto) 1.0 10^3/uL (0.2-0.9) H 01/08/22 16:24 Eos # (Auto) 0.2 10^3/uL (0.0-0.8) 01/08/22 16:24 Baso # (Auto) 0.0 10^3/uL (0.0-0.1) 01/08/22 16:24 Nucleated RBC % (auto) 0 % 01/08/22 16:24 Nucleated RBCs # 0.0 /100WBC 01/08/22 16:24 Sodium 140 mmol/L (136-145) 01/08/22 16:24 Potassium 3.8 mmol/L (3.5-5.1) 01/08/22 16:24 Chloride 109 mmol/L (98-107) H 01/08/22 16:24 Carbon Dioxide 22 mmol/L (22-29) 01/08/22 16:24 Anion Gap 12.8 (5-19) 01/08/22 16:24 BUN 12 mg/dL (6-20) 01/08/22 16:24 Creatinine 0.8 mg/dL (0.5-0.9) 01/08/22 16:24 GFR Calculation 90.5 mL/min (90-130) 01/08/22 16:24 Glucose 88 mg/dL (65-115) 01/08/22 16:24 Calculated Osmolality 289 mOsm/kg (285-295) 01/08/22 16:24 Calcium 9.5 mg/dL (8.5-10.5) 01/08/22 16:24 Total Bilirubin 0.4 mg/dL (0.15-1.2) 01/08/22 16:24 AST 17 U/L (0-32) 01/08/22 16:24 ALT 16 U/L (0-33) 01/08/22 16:24 Alkaline Phosphatase 69 U/L (35-105) 01/08/22 16:24 Total Protein 6.7 g/dL (6.6-8.7) 01/08/22 16:24 Albumin 4.2 g/dL (3.5-5.2) 01/08/22 16:24 Globulin 2.5 g/dL (1.3-4.6) 01/08/22 16:24 HCG, Qual Negative (Negative) 01/08/22 16:24 Urine Color Yellow (Yellow) 01/08/22 17:23 Urine Appearance Cloudy (CLEAR) 01/08/22 17:23 Urine pH 5 (5-7) 01/08/22 17:23 Ur Specific [place] 1.025 (1.005-1.030) 01/08/22 17:23 Urine Protein Trace (Negative) 01/08/22 17:23 Urine Glucose (UA) Norm (Normal) 01/08/22 17:23 Urine Ketones Negative (Negative) 01/08/22 17:23 Urine Blood 3+ (Negative) H 01/08/22 17:23 Urine Nitrate Negative (Negative) 01/08/22 17:23 Urine Bilirubin 1+ (Negative) H 01/08/22 17:23 Urine Urobilinogen Norm mg/dL (Negative) 01/08/22 17:23 Ur Leukocyte Esterase 2+ (Negative) H 01/08/22 17:23 Urine RBC Too numerous to cnt /hpf (0-2) H 01/08/22 17:23 Urine WBC Too numerous to cnt /hpf (0-5) H 01/08/22 17:23 Ur Squamous Epith Cells 0-4 /hpf (0-5) H 01/08/22 17:23 Amorphous Sediment Not Reportable 01/08/22 17:23 Urine Bacteria 2+ /hpf (NONE) H 01/08/22 17:23 Hyaline Casts 0-4 /lpf H 01/08/22 17:23 Urine Trichomonas 1+ /hpf H 01/08/22 17:23 Salicylates < 0.3 mg/dL (3-10) L 01/08/22 16:24 Urine Opiates Screen Negative ng/mL (Negative) 01/08/22 17:23 Acetaminophen < 5.0 ug/mL (10-30) L 01/08/22 16:24 Ur Barbiturates Screen Negative ng/mL (Negative) 01/08/22 17:23 Ur Phencyclidine Scrn Negative ng/mL (Negative) 01/08/22 17:23 Ur Amphetamines Screen Negative ng/mL (Negative) 01/08/22 17:23 U Benzodiazepines Scrn Negative ng/mL (Negative) 01/08/22 17:23 Urine Cocaine Screen Negative ng/mL (Negative) 01/08/22 17:23 U Marijuana (THC) Screen Negative ng/mL (Negative) 01/08/22 17:23 Ethyl Alcohol < 10 mg/dL (0-10) 01/08/22 16:24 Discharge Plan Discharge Patient Disposition: Admitted As Inpatient Admit Provider: Vipul Jean Clinical Impression: Acute psychosis, Chronic schizophrenia, Homicidal thoughts Condition: Stable Sign Out Sign Out Data: Patient Sign Out occurred on 01/08/22 at 17:09. Patient's care was discussed, and care was transferred from to Facundo Onofre. Coding Level of Care Code ED Telecommunications Switch Technician for Chg Fwd Exam Comprehensive Documented by User: CECILIA Yu 01/08/22 18:55 HPI - Psych General: Chief Complaint: Psychiatric Symptoms Stated Complaint: Psych eval Time Seen by Provider: 01/08/22 16:14 PFSH ED PFSH: Medical History Nicotine dependence, cigarettes, uncomplicated Other schizophrenia Psychiatric care Family History Other Diabetes Social History Smoking and tobacco status: current every day smoker cigarettes Packs smoked per day: 1 Years cigarettes smoked: 3 Second hand smoke exposure: Yes Alcohol intake: never Adopted: No Caregiver/support person: No Lives independently: No Household members: other Details: grandmother Housing: House Marital status: Single Number of children: 0 Highest education level completed: High School Graduate service: No Current occupational status: disabled Current occupational exposures/hazards: No Pets and animals: Yes Pets & animals: dog(s) History of recent travel: No Leisure activites: art and reading Sexually active: No Current gender identity: Female Arabella/Bahai: None Special arabella needs: No Agree to transfusion: Yes Financial difficulty paying for basics: Not Very Hard Course ED course: 1800, I talked with patient's mother Janis Garcia, she states the patient has not been taking her medications for 3 months. Patient sleeps all the time and became aggressive today throwing a shampoo bottle at her grandmother where she stays. Evonne then called the police and ran out the door when the mother came over to see what was going on. Mother tried to restrain the patient from running away patient got away from her and ran down the road and was picked up by the police. EMS was then called and patient was brought to the emergency department. Patient has a history of schizophrenia and nicotine abuse. Patient's last admission to this facility in the neuropsychiatric unit was in April 2021. After discussion with the mother I talked with the patient she did state that she wanted to harm her mother because she is a bitch. Patient is wanting admission to the neuropsychiatric unit to help with her aggression towards her mother and reestablishing her care. Patient denies hallucinations. Patient does feel that her mother is trying to harm her and will do anything to protect herself from her mother. [id number], discussed patient with Dr. Lugo ER attending physician, and Dr. Jean staff psychiatrist. They agreed to admission to the neuropsychiatric unit for acute psychosis and homicidal ideation. Vital Signs: Vital signs: Vital Signs Temperature 98.2 F 01/09/22 06:00 Pulse Rate 113 H 01/09/22 06:00 Respiratory Rate 18 01/09/22 06:00 Blood Pressure 138/76 01/08/22 22:00 Pulse Oximetry 96 01/09/22 06:00 Oxygen Delivery Me thod 01/08/22 22:00 MDM - Psych Medical Decision Making 21-year-old female was brought in by EMS for concerns of schizophrenia and acute psychosis. Patient was acting aggressive towards her mother and refusing to yaquelin e her medications for the last 3 months. On exam patient was very withdrawn with poor eye contact. Patient did admit to wanting to harm her mother and was paranoid that her mother was going to harm her first. Vital signs were normal. Remainder of exam was unremarkable. Patient does want admission to the neuropsychiatric unit. Differential diagnosis includes acute psychosis, homicidal thoughts, substance abuse, major depressive disorder. Laboratory values were unremarkable except large amount of red blood cells and white blood cells in the urine patient does admit to being on her menstrual cycle. Patient is cooperative with us in the emergency department. I discussed patient with Dr. Lugo who agreed the patient probably need to be admitted to [facility] for acute psychosis. After discussion with Dr. Ortiz, psychiatrist on staff, he agreed to plan. Lab Data : 01/08/22 16:24 01/08/22 16:24 Laboratory Results WBC 12.1 10^3/uL (4.0-10.0) H 01/08/22 16:24 RBC 4.60 10^6/uL (4.1-5.3) 01/08/22 16:24 Hgb 14.3 g/dL (11.5-15.3) 01/08/22 16:24 Hct 41.6 % (37.0-47.0) 01/08/22 16:24 MCV 90.4 fl (81-99) 01/08/22 16:24 MCH 31.1 pg (28.0-34.0) 01/08/22 16:24 MCHC 34.4 g/dL (30.0-36.0) 01/08/22 16:24 RDW 12.4 % (12.1-15.1) 01/08/22 16:24 Plt Count 248 10^3/cmm (130-400) 01/08/22 16:24 MPV 10.8 fL (7.4-10.4) H 01/08/22 16:24 Neut % (Auto) 70.7 % 01/08/22 16:24 Lymph % (Auto) 18.7 % 01/08/22 16:24 [place] % (Auto) 8.3 % 01/08/22 16:24 Eos % (Auto) 1.7 % 01/08/22 16:24 Baso % (Auto) 0.3 % 01/08/22 16:24 Neut # (Auto) 8.54 10^3/uL (1.8-7.7) H 01/08/22 16:24 Lymph # (Auto) 2.3 10^3/uL (0.8-4.8) 01/08/22 16:24 [place] # (Auto) 1.0 10^3/uL (0.2-0.9) H 01/08/22 16:24 Eos # (Auto) 0.2 10^3/uL (0.0-0.8) 01/08/22 16:24 Baso # (Auto) 0.0 10^3/uL (0.0-0.1) 01/08/22 16:24 Nucleated RBC % (auto) 0 % 09/07/22 16:24 Nucleated RBCs # 0.0 /100WBC 01/08/22 16:24 Sodium 140 mmol/L (136-145) 01/08/22 16:24 Potassium 3.8 mmol/L (3.5-5.1) 01/08/22 16:24 Chloride 109 mmol/L (98-107) H 01/08/22 16:24 Carbon Dioxide 22 mmol/L (22-29) 01/08/22 16:24 Anion Gap 12.8 (5-19) 01/08/22 16:24 BUN 12 mg/dL (6-20) 01/08/22 16:24 Creatinine 0.8 mg/dL (0.5-0.9) 01/08/22 16:24 GFR Calculation 90.5 mL/min (90-130) 01/08/22 16:24 Glucose 88 mg/dL (65-115) 01/08/22 16:24 Calculated Osmolality 289 mOsm/kg (285-295) 01/08/22 16:24 Calcium 9.5 mg/dL (8.5-10.5) 01/08/22 16:24 Total Bilirubin 0.4 mg/dL (0.15-1.2) 01/08/22 16:24 AST 17 U/L (0-32) 01/08/22 16:24 ALT 16 U/L (0-33) 01/08/22 16:24 Alkaline Phosphatase 69 U/L (35-105) 01/08/22 16:24 Total Protein 6.7 g/dL (6.6-8.7) 01/08/22 16:24 Albumin 4.2 g/dL (3.5-5.2) 01/08/22 16:24 Globulin 2.5 g/dL (1.3-4.6) 01/08/22 16:24 HCG, Qual Negative (Negative) 01/08/22 16:24 Urine Color Yellow (Yellow) 01/08/22 17:23 Urine Appearance Cloudy (CLEAR) 01/08/22 17:23 Urine pH 5 (5-7) 01/08/22 17:23 Ur Specific [place] 1.025 (1.005-1.030) 01/08/22 17:23 Urine Protein Trace (Negative) 01/08/22 17:23 Urine Glucose (UA) Norm (Normal) 01/08/22 17:23 Urine Ketones Negative (Negative) 01/08/22 17:23 Urine Blood 3+ (Negative) H 01/08/22 17:23 Urine Nitrate Negative (Negative) 01/08/22 17:23 Urine Bilirubin 1+ (Negative) H 01/08/22 17:23 Urine Urobilinogen Norm mg/dL (Negative) 01/08/22 17:23 Ur Leukocyte Esterase 2+ (Negative) H 01/08/22 17:23 Urine RBC Too numerous to cnt /hpf (0-2) H 01/08/22 17:23 Urine WBC Too numerous to cnt /hpf (0-5) H 01/08/22 17:23 Ur Squamous Epith Cells 0-4 /hpf (0-5) H 01/08/22 17:23 Amorphous Sediment Not Reportable 01/08/22 17:23 Urine Bacteria 2+ /hpf (NONE) H 01/08/22 17:23 Hyaline Casts 0-4 /lpf H 01/08/22 17:23 Urine Trichomonas 1+ /hpf H 01/08/22 17:23 Salicylates < 0.3 mg/dL (3-10) L 01/08/22 16:24 Urine Opiates Screen Negative ng/mL (Negative) 01/08/22 17:23 Acetaminophen < 5.0 ug/mL (10-30) L 01/08/22 16:24 Ur Barbiturates Screen Negative ng/mL (Negative) 01/08/22 17:23 Ur Phencyclidine Scrn Negative ng/mL (Negative) 01/08/22 17:23 Ur Amphetamines Screen Negative ng/mL (Negative) 01/08/22 17:23 U Benzodiazepines Scrn Negative ng/mL (Negative) 01/08/22 17:23 Urine Cocaine Screen Negative ng/mL (Negative) 01/08/22 17:23 U Marijuana (THC) Screen Negative ng/mL (Negative) 01/08/22 17:23 Ethyl Alcohol < 10 mg/dL (0-10) 01/08/22 16:24 Discharge Plan Discharge Patient Disposition: Admitted As Inpatient Admit Provider: Vipul Jean Clinical Impression: Acute psychosis, Chronic schizophrenia, Homicidal thoughts Condition: Stable Sign Out Sign Out Data: Patient Sign Out occurred on 01/08/22 at 17:09. Patient's care was discussed, and care was transferred from to Facundo Onofre. Coding Level of Care Code ED Telecommunications Switch Technician for Chg Fwd Exam Comprehensive
[2022-01-08 16:40] LABS: Basophils % 0.3 %; Eosinophils # 0.2 10^3/uL (0.0-0.8); Eosinophils % 1.7 %; Hematocrit 41.6 % (37.0-47.0); Hemoglobin 14.3 g/dL (11.5-15.3); Lymphocytes # 2.3 10^3/uL (0.8-4.8); Lymphocytes % 18.7 %; Mean Corpuscular HGB Conc 34.4 g/dL (30.0-36.0); Mean Corpuscular Hemoglobin 31.1 pg (28.0-34.0); Mean Corpuscular Volume 90.4 fl (81-99); Mean Platelet Volume 10.8 fL (7.4-10.4); Monocytes % 8.3 %; Neutrophils # 8.54 10^3/uL (1.8-7.7); Neutrophils % 70.7 %; Nucleated Red Blood Cells % 0 %; Platelet Count 248 10^3/cmm (130-400); Red Cell Distribution Width 12.4 % (12.1-15.1); White Blood Count 12.1 10^3/uL (4.0-10.0)
[2022-01-08 16:48] LABS: HCG, Serum Qual Negative (Negative)
[2022-01-08 17:06] LABS: Alanine Aminotransferase 16 U/L (0-33); Albumin Level 4.2 g/dL (3.5-5.2); Alkaline Phosphatase 69 U/L (35-105); Anion Gap 12.8 (5-19); Aspartate Amino Transferase 17 U/L (0-32); Blood Urea Nitrogen 12 mg/dL (6-20); Calcium 9.5 mg/dL (8.5-10.5); Carbon Dioxide 22 mmol/L (22-29); Chloride 109 mmol/L (98-107); Globulin 2.5 g/dL (1.3-4.6); Glomerular Filtration Rate 90.5 mL/min (90-130); Glucose 88 mg/dL (65-115); Osmolality Calculated 289 mOsm/kg (285-295); Potassium 3.8 mmol/L (3.5-5.1); Sodium 140 mmol/L (136-145); Total Bilirubin 0.4 mg/dL (0.15-1.2); Total Protein 6.7 g/dL (6.6-8.7)
[2022-01-08 17:09] LABS: Acetaminophen < 5.0 ug/mL (10-30); Alcohol Level < 10 mg/dL (0-10); Salicylate < 0.3 mg/dL (3-10)
[2022-01-08 17:34] VITALS: BP 106/65; PULSE 93; RESP 16; O2SAT 100
[2022-01-08 17:48] LABS: Add Urine Microscopic? YES; Bilirubin Urine 1+ (Negative); Blood Urine 3+ (Negative); Glucose Urine UA Norm (Normal); Ketones Urine Negative (Negative); Leukocyte Esterase Urine 2+ (Negative); Nitrate Urine Negative (Negative); Protein Urine Trace (Negative); Specific Gravity, Urine 1.025 (1.005-1.030); Urine Appearance Cloudy (CLEAR); Urine Color Yellow (Yellow); Urobilinogen Urine Norm (Negative); pH Urine 5 (5-7)
[2022-01-08 17:54] LABS: Add Urine Culture? Yes; Bacteria Urine 2+ /hpf; RBC Urine TOO NUMEROUS TO CNT /hpf (0-2); Squamous Epithelial Cell Urine 0-4 /hpf (0-5); Trichomonas Urine 1+ /hpf; WBC Urine TOO NUMEROUS TO CNT /hpf (0-5)
[2022-01-08 17:55] LABS: Amphetamines Screen Urine Negative (Negative); Barbiturates Screen Urine Negative (Negative); Benzodiazepines Screen Urine Negative (Negative); Cocaine Screen Urine Negative (Negative); Opiate Screen Urine Negative (Negative); PCP Screen Urine Negative (Negative); THC Screen Urine Negative (Negative)
[2022-01-08 17:57] LABS: Hyaline Casts Urine 0-4 /lpf
[2022-01-08 20:05] VITALS: PULSE 62; RESP 16; O2SAT 99
[2022-01-08 22:00] VITALS: BP 138/76; PULSE 68; RESP 16; TEMP 36.9; O2SAT 90
[2022-01-09 06:00] VITALS: PULSE 113; RESP 18; TEMP 36.8; O2SAT 96
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
[2022-01-09 14:00] VITALS: BP 103/66; PULSE 113; RESP 18; TEMP 37.4; O2SAT 99
[2022-01-09] MEDS: trazodone 50 mg Tablet PO (20:51)
[2022-01-09 21:47] VITALS: BP 100/72; PULSE 86; RESP 14; TEMP 36.4; O2SAT 98
[2022-01-10 06:00] VITALS: BP 98/48; PULSE 68; RESP 18; TEMP 36.8; O2SAT 96
--- NOTE | 2022-01-10 12:50 | PC.NURSE ---
GN notified doctor of medications that were taken on last admission in April. Ordered lithium 300 mg bid, abilify 10 mg once daily, and abilify maintena 400 mg once.
[2022-01-10] MEDS: ARIPiprazole 10 mg Tablet PO (13:40)
[2022-01-10 14:00] VITALS: BP 103/56; PULSE 73; RESP 18; TEMP 37.4; O2SAT 92
[2022-01-10] MEDS: ARIPiprazole Maintena 400 MG IM (17:14)
[2022-01-10] MEDS: lithium carbonate 300 mg Capsule PO (17:30)
--- NOTE | 2022-01-10 18:19 | P.NPUPN_ITS ---
Subjective NPU Subjective: Patient presents today as he had in the past prior medication with limited to no self-directed behavior from the standpoint of being the hospital, when he discharges etc. We discussed the medications that she had been on in the past which had some success at appropriate doses with which to be started as well as restarting the long-acting Abilify injection and she was agreeable. Otherwise she had limited to no spontaneous conversation. Mental Status Exam MSE Comments: This is a well-nourished well-developed white female in hospital scrubs with appropriate grooming and limited eye contact. No abnormal movements except for mild psychomotor retardation and frequent quick turns of her head and guarding of her eyes to see the source of noises. Cooperative with exam in mild distress. Speech was limited and decreased rate and volume. Mood described as okay, affect odd. Thought process organized. Thought content: Patient denied suicidal or homicidal ideation, there were no delusions reported and but clear paranoia and hypervigilance noted, she denied auditory or visual hallucinations but concerns for internal preoccupation exists. Attention and concentration were limited and memory appeared unreliable but none were formally tested. She is alert and oriented x3 but not really oriented to purpose. Insight and judgment are impaired, impulse control is impaired. Vitals/I&O/Wt Last Vital Signs Temp 98.3 F 01/10/22 22:00 Pulse 85 01/10/22 22:00 Resp 14 01/10/22 22:00 BP 99/54 01/10/22 22:00 Pulse Ox 96 01/10/22 22:00 O2 Del Method 01/10/22 22:00 Data NPU : 01/08/22 16:24 01/08/22 16:24 Micro: Microbiology 01/08/22 17:23 Urine Culture - Final Urine,Clean Catch Microbiology 01/08/22 17:23 Urine,Clean Catch Urine Culture - Final A&P Assessment and plan (1) Chronic schizophrenia: Status: Acute (2) Acute psychosis: Status: Acute (3) Nicotine dependence, cigarettes, uncomplicated: Status: Acute (4) Homicidal thoughts: Status: Acute Plan This is a 21-year-old female who presents with psychosis, with a history of trauma with multiple hospitalizations in the past including her last 1 here in the fall ultimately 1 last weeks, currently not taking medication. ? Plan: 1.? We will restart previous medication at appropriate doses including lithium 300 mg p.o. twice daily, Abilify 2 mg p.o. daily and Abilify Maintena 4 mg IM injection. 2.? Continue every 15 minute checks for safety. 3.? Encourage individual, group and milieu therapies. 4.? Encourage sober living treatment after discharge at the highest level of care to which she is willing to commit. Involuntary Hold Information 96 Hour Hold: 96 Hour Involuntary Admission: Yes 96 Hour Hold Ending Date: 01/14/22 96 Hour Hold Ending Time: 20:30 Attestations NPU Medical Necessity Statement*: Inpatient hospitalization is medically necessary and the clinically appropriate intervention at this time. We will monitor medications and make changes as indicated. Likely length of stay 7-10 days. Coding Level of Care Code Acute Director Of Financial Planning for [facility] Fwd Diagnoses Chronic schizophrenia F20.9 Acute psychosis F23 Nicotine dependence, cigarettes, uncomplicated F17.210 Homicidal thoughts R45.850
[2022-01-10 22:00] VITALS: BP 99/54; PULSE 85; RESP 14; TEMP 36.8; O2SAT 96
[2022-01-11 05:58] VITALS: BP 92/56; PULSE 81; RESP 12; TEMP 36.9; O2SAT 96
--- NOTE | 2022-01-11 07:19 | W.PM.NPUPNS ---
Subjective NPU Subjective: Patient is in today reporting that she is doing okay. She took her medication without any challenges and reports no issues noted. She essentially meandering through the halls without purpose. A lot of aimless behavior. However no complaints of any side effects or any other new or pressing issues. Mental Status Exam MSE Comments: This is a well-nourished well-developed white female in hospital scrubs with appropriate grooming and limited eye contact. No abnormal movements except for mild psychomotor retardation and frequent quick turns of her head and guarding of her eyes to see the source of noises. Cooperative with exam in mild distress. Speech was limited and decreased rate and volume. Mood described as okay, affect odd. Thought process organized. Thought content: Patient denied suicidal or homicidal ideation, there were no delusions reported and but clear paranoia and hypervigilance noted, she denied auditory or visual hallucinations but concerns for internal preoccupation exists. Attention and concentration were limited and memory appeared unreliable but none were formally tested. She is alert and oriented x3 but not really oriented to purpose. Insight and judgment are impaired, impulse control is impaired. Vitals/I&O/Wt Last Vital Signs Temp 98.4 F 01/11/22 05:58 Pulse 81 01/11/22 05:58 Resp 12 01/11/22 05:58 BP 92/56 01/11/22 05:58 Pulse Ox 96 01/11/22 05:58 O2 Del Method 01/11/22 05:58 Data NPU : 01/08/22 16:24 01/08/22 16:24 Micro: Microbiology 01/08/22 17:23 Urine Culture - Final Urine,Clean Catch Microbiology 01/08/22 17:23 Urine,Clean Catch Urine Culture - Final A&P Assessment and plan (1) Chronic schizophrenia: Status: Acute (2) Acute psychosis: Status: Acute (3) Nicotine dependence, cigarettes, uncomplicated: Status: Acute (4) Homicidal thoughts: Status: Acute Plan This is a 21-year-old female who presents with psychosis, with a history of trauma with multiple hospitalizations in the past including her last 1 here in the fall ultimately 1 last weeks, currently not taking medication. ? Plan: 1.? We restarted previous medication at appropriate doses including lithium 300 mg p.o. twice daily, Abilify 10 mg p.o. daily and Abilify Maintena 400 mg IM injection. 2.? Continue every 15 minute checks for safety. 3.? Encourage individual, group and milieu therapies. 4.? Encourage sober living treatment after discharge at the highest level of care to which she is willing to commit. Involuntary Hold Information 96 Hour Hold: 96 Hour Involuntary Admission: Yes 96 Hour Hold Ending Date: 01/14/22 96 Hour Hold Ending Time: 20:30 Attestations NPU Medical Necessity Statement*: Inpatient hospitalization is medically necessary and the clinically appropriate intervention at this time. We will monitor medications and make changes as indicated. Likely length of stay 7-10 days. Coding Level of Care Code Acute Information Technology Assistant for [facility] Fwd Diagnoses Chronic schizophrenia F20.9 Acute psychosis F23 Nicotine dependence, cigarettes, uncomplicated F17.210 Homicidal thoughts R45.850
[2022-01-11] MEDS: lithium carbonate 300 mg Capsule PO ×2 (08:57→17:06)
[2022-01-11] MEDS: ARIPiprazole 10 mg Tablet PO (08:58)
[2022-01-11 14:00] VITALS: BP 92/56; PULSE 81; RESP 12; TEMP 36.9; O2SAT 96
[2022-01-11] MEDS: OLANZapine 5 mg ODT PO (15:16)
[2022-01-11 15:23] VITALS: BP 104/66; PULSE 81; RESP 18; TEMP 36.6; O2SAT 97
[2022-01-11 19:55] VITALS: BP 93/55; PULSE 84; RESP 16; TEMP 36.9; O2SAT 94
[2022-01-12 06:00] VITALS: BP 90/63; PULSE 66; RESP 16; TEMP 36.7; O2SAT 98; BMI 23.1
[2022-01-12] MEDS: lithium carbonate 300 mg Capsule PO ×2 (08:54→17:25)
[2022-01-12] MEDS: ARIPiprazole 10 mg Tablet PO (08:55)
[2022-01-12 14:00] VITALS: BP 93/55; PULSE 78; RESP 20; TEMP 36.9; O2SAT 97
--- NOTE | 2022-01-12 18:42 | P.NPUPN_ITS ---
Subjective NPU Subjective: Patient presents today continuing as she has since admission fairly slow mentation and a very nonchalant vibe which often accompanies her psychosis. She reports the medications are working fine and that she has no complaints even as another patient who is psychotic is started her with her char tation. She is eating fine and sleeping well. Mental Status Exam MSE Comments: This is a well-nourished well-developed white female in hospital scrubs with appropriate grooming and limited eye contact. No abnormal movements except for mild psychomotor retardation and less darting of her eyes. Cooperati ve with exam in mild distress. Speech was limited and decreased rate and volume. Mood described as okay, affect odd. Thought process organized. Thought content: Patient denied suicidal or homicidal ideation, there were no delusions reported and but clear paranoia and hypervigilance noted, she denied auditory or visual hallucinations but concerns for internal preoccupation exists. Attention and concentration were limited and memory appeared unreliable but none were formally tested. She is alert and oriented x3 but not really oriented to purpose. Insight and judgment are impaired, impulse control is impaired. Vitals/I&O/Wt Last Vital Signs Temp 98.5 F 01/12/22 14:00 Pulse 78 01/12/22 14:00 Resp 20 H 01/12/22 14:00 BP 93/55 01/12/22 14:00 Pulse Ox 97 01/12/22 14:00 O2 Del Method 01/11/22 15:23 Weight last 48 hrs Weight 64.864 kg Data NPU : 01/08/22 16:24 01/08/22 16:24 A&P Assessment and plan (1) Chronic schizophrenia: Status: Acute (2) Acute psychosis: Status: Acute (3) Nicotine dependence, cigarettes, uncomplicated: Status: Acute (4) Homicidal thoughts: Status: Acute Plan This is a 21-year-old female who presents with psychosis, with a history of trauma with multiple hospitalizations in the past including her last 1 here in the fall ultimately 1 last weeks, currently not taking medication. ? Plan: 1.? We restarted previous medication at appropriate doses including lithium 300 mg p.o. twice daily, Abilify 10 mg p.o. daily and Abilify Maintena 400 mg IM injection. 2.? Continue every 15 minute checks for safety. 3.? Encourage individual, group and milieu therapies. 4.? Encourage sober living treatment after discharge at the highest level of care to which she is willing to commit. Involuntary Hold Information 96 Hour Hold: 96 Hour Involuntary Admission: Yes 96 Hour Hold Ending Date: 01/14/22 96 Hour Hold Ending Time: 20:30 Attestations NPU Medical Necessity Statement*: Inpatient hospitalization is medically necessary and the clinically appropriate intervention at this time. We will monitor medications and make changes as indicated. Likely length of stay 7-10 days. Coding Level of Care Code Acute Hazmat Cdl A Driver for [facility] Fwd Diagnoses Chronic schizophrenia F20.9 Acute psychosis F23 Nicotine dependence, cigarettes, uncomplicated F17.210 Homicidal thoughts R45.850
[2022-01-12 22:00] VITALS: RESP 16
[2022-01-13 06:00] VITALS: BP 100/53; PULSE 84; RESP 18; TEMP 36.8; O2SAT 97
[2022-01-13] MEDS: lithium carbonate 300 mg Capsule PO ×2 (08:16→21:01)
[2022-01-13] MEDS: ARIPiprazole 10 mg Tablet PO (08:16)
[2022-01-13 14:00] VITALS: BP 96/60; PULSE 85; RESP 16; TEMP 36.6; O2SAT 97
[2022-01-13] MEDS: hyDROXYzine 25 mg Capsule 50 MG PO (16:00)
--- NOTE | 2022-01-13 16:01 | PC.NURSE ---
PRN VISTARIL 50 MG GIVEN PO PER PT C/O STATED ANXIETY. SPECIFICALLY ASKING FOR ZYPREXA NO AGITATION/PSYCHOSIS NOTED SO PRN VISTARIL OFFERED, PT ACCEPTED
--- NOTE | 2022-01-13 17:00 | P.NPUPN_ITS ---
Subjective NPU Subjective: Patient presents today reporting that she is doing okay. She reports she is adjusting her medication fine but continues to be isolative and lacking spontaneous goal-directed behavior in general. She denies any issues and continues to take medication as prescribed. Mental Status Exam MSE Comments: This is a well-nourished well-developed white female in hospital scrubs with appropriate grooming and limited eye contact. No abnormal movements except for mild psychomotor retardation. Cooperative with exam inno acute distress. Speech was limited and decreased rate and volume. Mood described as okay, affect odd. Thought process organized. Thought content: Patient denied suicidal or homicidal ideation, there were no delusions reported and less paranoia and hypervigilance noted, she denied auditory or visual hallucinations but concerns for internal preoccupation exists. Attention and concentration were limited and memory appeared unreliable but none were formally tested. She is alert and oriented x3 but not really oriented to purpose. Insight and judgment are impaired, impulse control is impaired. Vitals/I&O/Wt Last Vital Signs Temp 97.9 F 01/13/22 14:00 Pulse 85 01/13/22 14:00 Resp 16 01/13/22 14:00 BP 96/60 01/13/22 14:00 Pulse Ox 97 01/13/22 14:00 O2 Del Method 01/13/22 14:00 Weight last 48 hrs Weight 64.864 kg Data NPU : 01/08/22 16:24 01/08/22 16:24 A&P Assessment and plan (1) Chronic schizophrenia: Status: Acute (2) Acute psychosis: Status: Acute (3) Nicotine dependence, cigarettes, uncomplicated: Status: Acute (4) Homicidal thoughts: Status: Acute Plan This is a 21-year-old female who presents with psychosis, with a history of trauma with multiple hospitalizations in the past including her last 1 here in the fall ultimately 1 last weeks, currently not taking medication. ? Plan: 1.? We restarted previous medication at appropriate doses including lithium 300 mg p.o. twice daily, Abilify 10 mg p.o. daily and Abilify Maintena 400 mg IM injection. 2.? Continue every 15 minute checks for safety. 3.? Encourage individual, group and milieu therapies. 4.? Encourage sober living treatment after discharge at the highest level of care to which she is willing to commit. Involuntary Hold Information 96 Hour Hold: 96 Hour Involuntary Admission: Yes 96 Hour Hold Ending Date: 01/14/22 96 Hour Hold Ending Time: 20:30 Attestations NPU Medical Necessity Statement*: Inpatient hospitalization is medically necessary and the clinically appropriate intervention at this time. We will monitor medications and make changes as indicated. Likely length of stay 6-9 days. Coding Level of Care Code Acute Dry Cell Battery Assembler for [facility] Fwd Diagnoses Chronic schizophrenia F20.9 Acute psychosis F23 Nicotine dependence, cigarettes, uncomplicated F17.210 Homicidal thoughts R45.850
[2022-01-13 20:16] VITALS: RESP 18
[2022-01-14] MEDS: OLANZapine 5 mg ODT PO (02:23)
--- NOTE | 2022-01-14 02:58 | PC.NURSE ---
Medicated patient with Zyprexa for anxiety.
[2022-01-14 06:00] VITALS: BP 102/64; PULSE 76; RESP 16; O2SAT 97
[2022-01-14] MEDS: ARIPiprazole 10 mg Tablet PO (08:00)
[2022-01-14] MEDS: lithium carbonate 300 mg Capsule PO ×2 (08:00→17:21)
[2022-01-14] MEDS: hyDROXYzine 25 mg Capsule 50 MG PO ×2 (11:46→17:21)
[2022-01-14 14:00] VITALS: BP 118/73; PULSE 87; RESP 18; TEMP 36.8; O2SAT 93
--- NOTE | 2022-01-14 15:54 | P.NPUPN_ITS ---
Subjective NPU Subjective: Patient presents today continuing to be isolative living somewhat more talkative. We discussed the like to make increase in the medication tomorrow as well as placing her on a 21-year-old medications stabilize. There is a chance that her parents might take a more active role in her situation and move her from her grandparents. We discussed how this accountability might be helpful. Otherwise she continues to only answer questions and not have spontaneous speech with this writer editor. Mental Status Exam MSE Comments: This is a well-nourished well-developed white female in hospital scrubs with appropriate grooming and limited eye contact. No abnormal movements except for mild psychomotor retardation. Cooperative with exam in no acute distress. Speech was limited and decreased rate and volume. Mood described as okay, affect odd. Thought process organized. Thought content: Patient denied suicidal or homicidal ideation, there were no delusions reported and less paranoia and hypervigilance noted, she denied auditory or visual hallucinations but concerns for internal preoccupation exists. Attention and concentration were limited and memory appeared unreliable but none were formally tested. She is alert and oriented x3 but not really oriented to purpose. Insight and judgment are impaired, impulse control is impaired. Vitals/I&O/Wt Last Vital Signs Temp 98.3 F 01/14/22 14:00 Pulse 87 01/14/22 14:00 Resp 18 01/14/22 14:00 BP 118/73 01/14/22 14:00 Pulse Ox 93 01/14/22 14:00 O2 Del Method 01/14/22 14:00 Data NPU : 01/08/22 16:24 01/08/22 16:24 A&P Assessment and plan (1) Chronic schizophrenia: Status: Acute (2) Acute psychosis: Status: Acute (3) Nicotine dependence, cigarettes, uncomplicated: Status: Acute (4) Homicidal thoughts: Status: Acute Plan This is a 21-year-old female who presents with psychosis, with a history of trauma with multiple hospitalizations in the past including her last 1 here in the fall ultimately 1 last weeks, currently not taking medication. ? Plan: 1.? We restarted previous medication at appropriate doses including lithium 300 mg p.o. twice daily, Abilify 10 mg p.o. daily and Abilify Maintena 400 mg IM injection. 2.? Continue every 15 minute checks for safety. 3.? Encourage individual, group and milieu therapies. 4.? Encourage sober living treatment after discharge at the highest level of care to which she is willing to commit. 5. We will check lithium level in the morning prior to her first dose and likely increase her lithium to previous levels. 6. We will collaborate with parents for discharge planning. Involuntary Hold Information 96 Hour Hold: 96 Hour Involuntary Admission: Yes 96 Hour Hold Ending Date: 01/14/22 96 Hour Hold Ending Time: 20:30 Attestations NPU Medical Necessity Statement*: Inpatient hospitalization is medically necessary and the clinically appropriate intervention at this time. We will monitor medications and make changes as indicated. Likely length of stay 5-7 days. Coding Level of Care Code Acute Search Engine Optimization Specialist for Jasmin Fwd Diagnoses Chronic schizophrenia F20.9 Acute psychosis F23 Nicotine dependence, cigarettes, uncomplicated F17.210 Homicidal thoughts R45.850
[2022-01-14 21:07] VITALS: BP 91/54; PULSE 95; RESP 16; O2SAT 98
[2022-01-15 06:00] VITALS: RESP 18
[2022-01-15] MEDS: lithium carbonate 300 mg Capsule PO ×2 (08:31→21:05)
[2022-01-15] MEDS: ARIPiprazole 10 mg Tablet PO (08:31)
[2022-01-15] MEDS: hyDROXYzine 25 mg Capsule 50 MG PO (11:19)
--- NOTE | 2022-01-15 11:19 | PC.NURSE ---
PRN VISTARIL 50 MG GIVEN PO PER PT C/O STATED ANXIETY
[2022-01-15 14:00] VITALS: BP 105/68; PULSE 73; RESP 16; TEMP 36.8; O2SAT 98
--- NOTE | 2022-01-15 16:56 | W.PM.NPUPNS ---
Subjective NPU Subjective: Patient presents today reporting that she is doing a little better. She seems to have affective reactivity for the first time since in the hospital. We discussed the plan to start lithium level and then possibly increase her lithium back to previous level. As well as discussing awaiting the 21-day hold hearing. Staff also noting increased emotional reactivity. Mental Status Exam MSE Comments: This is a well-nourished well-developed white female in hospital scrubs with appropriate grooming and limited eye contact. No abnormal movements except for mild psychomotor retardation. Cooperative with exam in no acute distress. Speech was limited and decreased rate and volume. Mood described as okay, affect less odd. Thought process organized. Thought content: Patient denied suicidal or homicidal ideation, there were no delusions reported and less paranoia and hypervigilance noted, she denied auditory or visual hallucinations but concerns for internal preoccupation exists. Attention and concentration were limited and memory appeared unreliable but none were formally tested. She is alert and oriented x3 but not really oriented to purpose. Insight and judgment are impaired, impulse control is impaired. Vitals/I&O/Wt Last Vital Signs Temp 97.6 F 01/15/22 22:00 Pulse 77 01/15/22 22:00 Resp 14 01/15/22 22:00 BP 99/57 01/15/22 22:00 Pulse Ox 98 01/15/22 22:00 O2 Del Method 01/15/22 22:00 Data NPU : 01/08/22 16:24 01/08/22 16:24 A&P Assessment and plan (1) Chronic schizophrenia: Status: Acute (2) Acute psychosis: Status: Acute (3) Nicotine dependence, cigarettes, uncomplicated: Status: Acute (4) Homicidal thoughts: Status: Acute Plan This is a 21-year-old female who presents with psychosis, with a history of trauma with multiple hospitalizations in the past including her last 1 here in the fall ultimately 1 last weeks, currently not taking medication. ? Plan: 1.? We restarted previous medication at appropriate doses including lithium 300 mg p.o. twice daily, Abilify 10 mg p.o. daily and Abilify Maintena 400 mg IM injection. 2.? Continue every 15 minute checks for safety. 3.? Encourage individual, group and milieu therapies. 4.? Encourage sober living treatment after discharge at the highest level of care to which she is willing to commit. 5. We will check lithium level in the morning prior to her first dose and likely increase her lithium to previous levels. 6. We will collaborate with parents for discharge planning. Involuntary Hold Information 96 Hour Hold: 96 Hour Involuntary Admission: Yes 96 Hour Hold Ending Date: 01/14/22 96 Hour Hold Ending Time: 20:30 Attestations NPU Medical Necessity Statement*: Inpatient hospitalization is medically necessary and the clinically appropriate intervention at this time. We will monitor medications and make changes as indicated. Likely length of stay 4-6 days. Coding Level of Care Code Acute Application Packaging Consultant for g Fwd Diagnoses Chronic schizophrenia F20.9 Acute psychosis F23 Nicotine dependence, cigarettes, uncomplicated F17.210 Homicidal thoughts R45.850
[2022-01-15] MEDS: trazodone 50 mg Tablet PO (21:05)
[2022-01-15 22:00] VITALS: BP 99/57; PULSE 77; RESP 14; TEMP 36.4; O2SAT 98
[2022-01-16 06:00] VITALS: BP 100/60; PULSE 75; RESP 14; TEMP 36.7; O2SAT 97
[2022-01-16] MEDS: ARIPiprazole 10 mg Tablet PO (08:28)
[2022-01-16] MEDS: lithium carbonate 300 mg Capsule PO ×2 (08:28→20:07)
[2022-01-16 08:34] LABS: Lithium 0.6 mmol/L (0.6-1.2)
[2022-01-16] MEDS: docusate sodium 100 mg Capsule PO (10:15)
[2022-01-16] MEDS: hyDROXYzine 25 mg Capsule 50 MG PO (13:42)
[2022-01-16 14:00] VITALS: BP 121/67; PULSE 87; RESP 18; TEMP 37; O2SAT 98
--- NOTE | 2022-01-16 16:50 | P.NPUPN_ITS ---
Subjective NPU Subjective: Patient presents today reporting that she is doing okay. We discussed the 21-day hold hearing tomorrow at 11 AM. We discussed the purpose of the meeting and our continued concern about her psychiatric functioning. She had very limited response. We discussed lithium level this morning and plan to increase her evening lithium to 600 mg p.o. nightly. Mental Status Exam MSE Comments: This is a well-nourished well-developed white female in hospital scrubs with appropriate grooming and limited eye contact. No abnormal movements except for mild psychomotor retardation. Cooperative with exam in no acute distress. Speech was limited and decreased rate and volume. Mood described as okay, affect less odd. Thought process organized. Thought content: Patient denied suicidal or homicidal ideation, there were no delusions reported and less paranoia and hypervigilance noted, she denied auditory or visual hallucinations but concerns for internal preoccupation exists. Attention and concentration were limited and memory appeared unreliable but none were formally tested. She is alert and oriented x3 but not really oriented to purpose. Insight and judgment are impaired, impulse control is impaired. Vitals/I&O/Wt Last Vital Signs Temp 98.1 F 01/16/22 20:47 Pulse 83 01/16/22 20:47 Resp 15 01/16/22 20:47 BP 101/54 01/16/22 20:47 Pulse Ox 94 01/16/22 20:47 O2 Del Method 01/16/22 20:47 Data NPU : 01/08/22 16:24 01/08/22 16:24 A&P Assessment and plan (1) Chronic schizophrenia: Status: Acute (2) Acute psychosis: Status: Acute (3) Nicotine dependence, cigarettes, uncomplicated: Status: Acute (4) Homicidal thoughts: Status: Acute Plan This is a 21-year-old female who presents with psychosis, with a history of t rauma with multiple hospitalizations in the past including her last 1 here in the fall ultimately 1 last weeks, currently not taking medication. ? Plan: 1.? We restarted previous medication at appropriate doses including lithium 300 mg p.o. twice daily with lithium level at 0.6 we will change it to 3 mg morning and 6 mg at night, Abilify 10 mg p.o. daily and Abilify Maintena 400 mg IM injection. 2.? Continue every 15 minute checks for safety. 3.? Encourage individual, group and milieu therapies. 4.? Encourage sober living treatment after discharge at the highest level of care to which she is willing to commit. 5. We will check lithium level in the morning prior to her first dose and likely increase her lithium to previous levels. 6. We will collaborate with parents for discharge planning. Involuntary Hold Information 96 Hour Hold: 96 Hour Involuntary Admission: Yes 96 Hour Hold Ending Date: 01/14/22 96 Hour Hold Ending Time: 20:30 Attestations NPU Medical Necessity Statement*: Inpatient hospitalization is medically necessary and the clinically appropriate intervention at this time. We will monitor medications and make changes as indicated. Likely length of stay 4-6 days. Coding Level of Care Code Acute Oil Pipeline Dispatcher for Jasmin Fwd Diagnoses Chronic schizophrenia F20.9 Acute psychosis F23 Nicotine dependence, cigarettes, uncomplicated F17.210 Homicidal thoughts R45.850
[2022-01-16] MEDS: trazodone 50 mg Tablet PO (20:07)
[2022-01-16 20:47] VITALS: BP 101/54; PULSE 83; RESP 15; TEMP 36.7; O2SAT 94
[2022-01-17 06:00] VITALS: BP 100/61; PULSE 74; RESP 17; TEMP 36.8; O2SAT 96
[2022-01-17] MEDS: ARIPiprazole 10 mg Tablet PO (08:53)
[2022-01-17] MEDS: lithium carbonate 300 mg Capsule PO (08:53)
[2022-01-17] MEDS: hyDROXYzine 25 mg Capsule 50 MG PO ×2 (12:19→20:29)
--- NOTE | 2022-01-17 13:45 | P.NPUPN_ITS ---
Subjective NPU Subjective: Patient presents today reporting that she is doing a little better. A little more conversant. We went to court and she was placed on a 21- day hold and she managed that well. She agreed to continue to take her medication as prescribed and work towards appropriate discharge planning. Mental Status Exam MSE Comments: This is a well-nourished well-developed white female in hospital scrubs with appropriate grooming and limited eye contact. No abnormal movements except for mild psychomotor retardation. Cooperative with exam in no acute distress. Speech was limited and decreased rate and volume. Mood described as okay, affect less odd. Thought process organized. Thought content: Patient d enied suicidal or homicidal ideation, there were no delusions reported and less paranoia and hypervigilance noted, she denied auditory or visual hallucinations but concerns for internal preoccupation exists. Attention and concentration were limited and memory appeared unreliable but none were formally tested. She is alert and oriented x3 but not really oriented to purpose. Insight and judgment are impaired, impulse control is impaired. Vitals/I&O/Wt Last Vital Signs Temp 98.2 F 01/17/22 06:00 Pulse 74 01/17/22 06:00 Resp 17 01/17/22 06:00 BP 100/61 01/17/22 06:00 Pulse Ox 96 01/17/22 06:00 O2 Del Method 01/17/22 06:00 Data NPU : 01/08/22 16:24 01/08/22 16:24 A&P Assessment and plan (1) Chronic schizophrenia: Status: Acute (2) Acute psychosis: Status: Acute (3) Nicotine dependence, cigarettes, uncomplicated: Status: Acute (4) Homicidal thoughts: Status: Acute Plan This is a 21-year-old female who presents with psychosis, with a history of trauma with multiple hospitalizations in the past including her last 1 here in the fall ultimately 1 last weeks, currently not taking medication. ? Plan: 1.? We restarted previous medication at appropriate doses including lithium 300 mg p.o. twice daily with lithium level at 0.6 we changed it to 300 mg morning and 6 mg at night, Abilify 10 mg p.o. daily and Abilify Maintena 400 mg IM injection. 2.? Continue every 15 minute checks for safety. 3.? Encourage individual, group and milieu therapies. 4.? Encourage sober living treatment after discharge at the highest level of care to which she is willing to commit. 5. We will check lithium level in the morning prior to her first dose and likely increase her lithium to previous levels. 6. We will collaborate with parents for discharge planning. Involuntary Hold Information 96 Hour Hold: 96 Hour Involuntary Admission: Yes 96 Hour Hold Ending Date: 01/14/22 96 Hour Hold Ending Time: 20:30 Attestations NPU Medical Necessity Statement*: Inpatient hospitalization is medically necessary and the clinically appropriate intervention at this time. We will monitor medications and make changes as indicated. Likely length of stay 4-6 days. Coding Level of Care Code Acute Welding Production Supervisor for [facility] Fwd Diagnoses Chronic schizophrenia F20.9 Acute psychosis F23 Nicotine dependence, cigarettes, uncomplicated F17.210 Homicidal thoughts R45.850
[2022-01-17 14:00] VITALS: BP 117/75; PULSE 79; RESP 16; TEMP 36.7; O2SAT 98
[2022-01-17] MEDS: OLANZapine 5 mg ODT PO (15:44)
[2022-01-17] MEDS: lithium carbonate 300 mg Capsule 600 MG PO (20:29)
[2022-01-17] MEDS: trazodone 50 mg Tablet PO (20:29)
[2022-01-17 20:58] VITALS: BP 100/58; PULSE 74; RESP 15; TEMP 36.8; O2SAT 97
[2022-01-18 06:00] VITALS: BP 106/60; PULSE 91; RESP 14; TEMP 37; O2SAT 95
[2022-01-18] MEDS: ARIPiprazole 10 mg Tablet PO (08:09)
[2022-01-18] MEDS: lithium carbonate 300 mg Capsule PO (08:09)
[2022-01-18] MEDS: hyDROXYzine 25 mg Capsule 50 MG PO (12:50)
[2022-01-18 12:59] VITALS: BP 109/69; PULSE 82; RESP 18; TEMP 36.8; O2SAT 100
--- NOTE | 2022-01-18 17:10 | P.NPUPN_ITS ---
Subjective NPU Subjective: Patient presents today reporting that she is doing ok and was mostly wondering how much longer she will need to stay. More conversant again today. She denied any additional issues. Mental Status Exam MSE Comments: This is a well-nourished well-developed white female in hospital scrubs with appropriate grooming and limited eye contact. No abnormal movements except for mild psychomotor retardation. Cooperative with exam in no acute distress. Speech was more spontaneous and decreased rate and volume. Mood described as okay, affect less odd. Thought process organized. Thought content: Patient denied suicidal or homicidal ideation, there were no delusions reported and less paranoia and hypervigilance noted, she denied auditory or visual hallucinations but concerns for internal preoccupation exists. Attention and concentration were limited and memory appeared unreliable but none were f ormally tested. She is alert and oriented x3 but not really oriented to purpose. Insight and judgment are impaired, impulse control is impaired. Vitals/I&O/Wt Last Vital Signs Temp 98.3 F 01/18/22 12:59 Pulse 82 01/18/22 12:59 Resp 18 01/18/22 12:59 BP 109/69 01/18/22 12:59 Pulse Ox 100 01/18/22 12:59 O2 Del Method 01/18/22 12:59 Data NPU : 01/08/22 16:24 01/08/22 16:24 A&P Assessment and plan (1) Chronic schizophrenia: Status: Acute (2) Acute psychosis: Status: Acute (3) Nicotine dependence, cigarettes, uncomplicated: Status: Acute (4) Homicidal thoughts: Status: Acute Plan This is a 21-year-old female who presents with psychosis, with a history of trauma with multiple hospitalizations in the past including her last 1 here in the fall ultimately 1 last weeks, currently not taking medication. ? Plan: 1.? We restarted previous medication at appropriate doses including lithium 300 mg p.o. twice daily with lithium level at 0.6 we changed it to 300 mg morning and 6 mg at night, Abilify 10 mg p.o. daily and Abilify Maintena 400 mg IM injection. 2.? Continue every 15 minute checks for safety. 3.? Encourage individual, group and milieu therapies. 4.? Encourage sober living treatment after discharge at the highest level of care to which she is willing to commit. 5. We will check lithium level in the morning prior to her first dose and likely increase her lithium to previous levels. 6. We will collaborate with parents for discharge planning. Involuntary Hold Information 96 Hour Hold: 96 Hour Involuntary Admission: Yes 96 Hour Hold Ending Date: 01/14/22 96 Hour Hold Ending Time: 20:30 Attestations NPU Medical Necessity Statement*: Inpatient hospitalization is medically necessary and the clinically appropriate intervention at this time. We will monitor medi cations and make changes as indicated. Likely length of stay 4-6 days. Coding Level of Care Code Acute Infantry Weapons Crewmember for g Fwd Diagnoses Chronic schizophrenia F20.9 Acute psychosis F23 Nicotine dependence, cigarettes, uncomplicated F17.210 Homicidal thoughts R45.850
[2022-01-18] MEDS: OLANZapine 5 mg ODT PO (18:00)
[2022-01-18 19:49] VITALS: BP 136/78; PULSE 98; RESP 14; TEMP 36.7; O2SAT 98
[2022-01-18] MEDS: lithium carbonate 300 mg Capsule 600 MG PO (20:07)
[2022-01-18] MEDS: trazodone 50 mg Tablet PO (20:07)
[2022-01-19 06:00] VITALS: BP 100/59; PULSE 69; RESP 18; TEMP 36.7; O2SAT 96; BMI 23.1
[2022-01-19] MEDS: lithium carbonate 300 mg Capsule PO (08:37)
[2022-01-19] MEDS: hyDROXYzine 25 mg Capsule 50 MG PO (08:37)
[2022-01-19] MEDS: docusate sodium 100 mg Capsule PO (08:37)
[2022-01-19] MEDS: ARIPiprazole 10 mg Tablet PO (08:37)
--- NOTE | 2022-01-19 13:38 | W.PM.NPUPNS ---
Subjective NPU Subjective: Patient presents today with a makeshift calendar on the wall counting off the days she could have left if she stayed here 21 days. She was more engaging and we discussed the likelihood should not be here for that length that we will continue to work with her mother tomorrow to determine where we are on appropriate discharge location. We discussed her continued improvement in her being closer to discharge ready. Mental Status Exam MSE Comments: This is a well-nourished well-developed white female in hospital scrubs with appropriate grooming and limited eye contact. No abnormal movements except for mild psychomotor retardation. Cooperative with exam in no acute distress. Speech was more spontaneous and decreased rate and volume. Mood described as okay, affect less odd. Thought process organized. Thought content: Patient denied suicidal or homicidal ideation, there were no delusions reported and less paranoia and hypervigilance noted, she denied auditory or visual hallucinations but concerns for internal preoccupation exists. Attention and concentration were limited and memory appeared unreliable but none were formally tested. She is alert and oriented x3 but not really oriented to purpose. Insight and judgment are impaired, impulse control is impaired. Vitals/I&O/Wt Last Vital Signs Temp 98.2 F 01/20/22 06:00 Pulse 77 01/20/22 06:00 Resp 18 01/20/22 06:00 BP 101/65 01/20/22 06:00 Pulse Ox 97 01/20/22 06:00 O2 Del Method 01/19/22 20:09 Weight last 48 hrs Weight 64.864 kg Data NPU : 01/08/22 16:24 01/08/22 16:24 Involuntary Hold Information 96 Hour Hold: 96 Hour Involuntary Admission: Yes 96 Hour Hold Ending Date: 01/14/22 96 Hour Hold Ending Time: 20:30 Attestations NPU Medical Necessity Statement*: Inpatient hospitalization is medically necessary and the clinically appropriate intervention at this time. We will monitor medications and make changes as indicated. Likely length of stay 3-5 days. Coding Level of Care Code Acute Infantry Senior Sergeant for Jasmin Rubi
[2022-01-19 14:00] VITALS: BP 115/71; PULSE 69; RESP 16; TEMP 36.8; O2SAT 97
[2022-01-19 20:09] VITALS: BP 103/62; PULSE 86; RESP 18; TEMP 36.4; O2SAT 97
[2022-01-19] MEDS: lithium carbonate 300 mg Capsule 600 MG PO (20:16)
[2022-01-20 06:00] VITALS: BP 101/65; PULSE 77; RESP 18; TEMP 36.8; O2SAT 97
[2022-01-20] MEDS: ARIPiprazole 10 mg Tablet PO (08:26)
[2022-01-20] MEDS: lithium carbonate 300 mg Capsule PO (08:26)
[2022-01-20] MEDS: hyDROXYzine 25 mg Capsule 50 MG PO (11:50)
[2022-01-20 14:00] VITALS: BP 119/69; PULSE 82; RESP 16; TEMP 36.9; O2SAT 97
--- NOTE | 2022-01-20 15:28 | P.NPUPN_ITS ---
Subjective NPU Subjective: Patient presents today having the lithium little higher and helpful in the past. We discussed alternatives of increasing her lithium to 300 mg p.o. twice daily and she understood and agreed to proceed as documented in this note. We talked about her having some continued progress and us talking with family to determine where she is versus baseline. Mental Status Exam MSE Comments: This is a well-nourished well-developed white female in hospital scrubs with appropriate grooming and limited eye contact. No abnormal movements except for mild psychomotor retardation. Cooperative with exam in no acute distress. Speech was more spontaneous and decreased rate and volume. Mood described as , affect less odd. Thought process organized. Thought content: Patient denied suicidal or homicidal ideation, there were no delusions reported and less paranoia and hypervigilance noted, she denied auditory or visual hallucinations but concerns for internal preoccupation exists. Attention and concentration were limited and memory appeared unreliable but none were formally tested. She is alert and oriented x3 but not really oriented to purpose. Insight and judgment are limited, impulse control is improving. Vitals/I&O/Wt Last Vital Signs Temp 98.4 F 01/20/22 14:00 Pulse 82 01/20/22 14:00 Resp 16 01/20/22 14:00 BP 119/69 01/20/22 14:00 Pulse Ox 97 01/20/22 14:00 O2 Del Method 01/20/22 14:00 Weight last 48 hrs Weight 64.864 kg Data NPU : 01/08/22 16:24 01/08/22 16:24 A&P Assessment and plan (1) Chronic schizophrenia: Status: Acute (2) Acute psychosis: Status: Acute (3) Nicotine dependence, cigarettes, uncomplicated: Status: Acute (4) Homicidal thoughts: Status: Acute Plan This is a 21-year-old female who presents with psychosis, with a history of trauma with multiple hospitalizations in the past including her last 1 here in the fall ultimately 1 last weeks, currently not taking medication. ? Plan: 1.? We restarted previous medication at appropriate doses including lithium 300 mg p.o. twice daily with lithium level at 0.6 we changed it to 600 mg p.o. twice daily, Abilify 10 mg p.o. daily and Abilify Maintena 400 mg IM injection. 2.? Continue every 15 minute checks for safety. 3.? Encourage individual, group and milieu therapies. 4.? Encourage sober living treatment after discharge at the highest level of care to which she is willing to commit. 5. We will check lithium level in the morning prior to her first dose and likely increase her lithium to previous levels. 6. We will collaborate with parents for discharge planning. Involuntary Hold Information 96 Hour Hold: 96 Hour Involuntary Admission: Yes 96 Hour Hold Ending Date: 01/14/22 96 Hour Hold Ending Time: 20:30 Attestations NPU Medical Necessity Statement*: Inpatient hospitalization is medically necessary and the clinically appropriate intervention at this time. We will monitor medications and make changes as indicated. Likely length of stay 2-4 days. Coding Level of Care Code Acute Sharepoint Trainer for Jasmin Fwd Diagnoses Chronic schizophrenia F20.9 Acute psychosis F23 Nicotine dependence, cigarettes, uncomplicated F17.210 Homicidal thoughts R45.850
[2022-01-20] MEDS: lithium carbonate 300 mg Capsule 600 MG PO (19:33)
[2022-01-20 19:58] VITALS: BP 119/67; PULSE 83; RESP 19; TEMP 36.8; O2SAT 98
[2022-01-21 06:00] VITALS: BP 111/72; PULSE 59; RESP 18; TEMP 36.9; O2SAT 98
[2022-01-21] MEDS: lithium carbonate 300 mg Capsule PO (08:16)
[2022-01-21] MEDS: ARIPiprazole 10 mg Tablet PO (08:16)
[2022-01-21 08:26] LABS: Lithium 0.8 mmol/L (0.6-1.2)
[2022-01-21] MEDS: hyDROXYzine 25 mg Capsule 50 MG PO (12:04)
[2022-01-21 14:00] VITALS: BP 113/67; PULSE 93; RESP 16; TEMP 37.2; O2SAT 97
--- NOTE | 2022-01-21 18:13 | P.NPUPN_ITS ---
Subjective NPU Subjective: Patient presents today reporting that she is doing little better and excited about the prospect of her likely discharge before the weekend. Continue to work with her family who are pleased that she is on a long-acting injectable and report she is generally manageable when she is on medication. We discussed some strategies for assisting with medication adherence. She is becoming less isolative and gaining some spontaneity. Mental Status Exam MSE Comments: This is a well-nourished well-developed white female in hospital scrubs with appropriate grooming and limited eye contact. No abnormal movements except for mild psychomotor retardation. Cooperative with exam in no acute distress. Speech was more spontaneous and more normal rate and volume when she decides to speak. Mood described as better, affect less odd. Thought process organized. Thought content: Patient denied suicidal or homicidal ideation, there were no delusions reported and less paranoia and hypervigilance noted, she denied auditory or visual hallucinations but concerns for internal preoccupation exists. Attention and concentration were limited and memory appeared unreliable but none were formally tested. She is alert and oriented x3. Insight and judgment are limited, impulse control is improving. Vitals/I&O/Wt Last Vital Signs Temp 98.2 F 01/21/22 21:21 Pulse 88 01/21/22 21:21 Resp 18 01/21/22 21:21 BP 96/61 01/21/22 21:21 Pulse Ox 97 01/21/22 21:21 O2 Del Method 01/21/22 21:21 Data NPU : 01/08/22 16:24 01/08/22 16:24 A&P Assessment and plan (1) Chronic schizophrenia: Status: Acute (2) Acute psychosis: Status: Acute (3) Nicotine dependence, cigarettes, uncomplicated: Status: Acute (4) Homicidal thoughts: Status: Acute Plan This is a 21-year-old female who presents with psychosis, with a history of trauma with multiple hospitalizations in the past including her last 1 here in the fall ultimately 1 last weeks, currently not taking medication. ? Plan: 1.? We restarted previous medication at appropriate doses including lithium 300 mg p.o. twice daily with lithium level at 0.6 we will consider changing it to 600 mg p.o. twice daily after repeat level drawn, Abilify 10 mg p.o. daily and Abilify Maintena 400 mg IM injection (next injection due 02/09/2022.) 2.? Continue every 15 minute checks for safety. 3.? Encourage individual, group and milieu therapies. 4.? Encourage sober living treatment after discharge at the highest level of care to which she is willing to commit. 5. We will check lithium level in the morning prior to her first dose and likely increase her lithium to previous levels. 6. We will collaborate with parents for discharge planning. Involuntary Hold Information 96 Hour Hold: 96 Hour Involuntary Admission: Yes 96 Hour Hold Ending Date: 01/14/22 96 Hour Hold Ending Time: 20:30 Attestations NPU Medical Necessity Statement*: Inpatient hospitalization is medically necessary and the clinically appropriate intervention at this time. We will monitor m edications and make changes as indicated. Likely length of stay 2 -3 days. Coding Level of Care Code Acute Fire And Explosion Investigator for Jasmin Fwd Diagnoses Chronic schizophrenia F20.9 Acute psychosis F23 Nicotine dependence, cigarettes, uncomplicated F17.210 Homicidal thoughts R45.850
[2022-01-21] MEDS: nicotine 2 mg Gum BUCCAL (18:21)
[2022-01-21] MEDS: lithium carbonate 300 mg Capsule 600 MG PO (18:21)
[2022-01-21] MEDS: trazodone 50 mg Tablet PO (20:04)
[2022-01-21 21:21] VITALS: BP 96/61; PULSE 88; RESP 18; TEMP 36.8; O2SAT 97
[2022-01-22 06:00] VITALS: BP 99/62; PULSE 74; RESP 16; TEMP 36.6; O2SAT 98
[2022-01-22 08:23] LABS: Lithium 0.8 mmol/L (0.6-1.2)
[2022-01-22] MEDS: lithium carbonate 300 mg Capsule PO (08:59)
[2022-01-22] MEDS: ARIPiprazole 10 mg Tablet PO (08:59)
[2022-01-22] MEDS: hyDROXYzine 25 mg Capsule 50 MG PO (12:09)
[2022-01-22 14:00] VITALS: BP 110/69; PULSE 95; RESP 18; O2SAT 96
--- NOTE | 2022-01-22 14:49 | W.PM.NPUPNS ---
Subjective NPU Subjective: Patient presents today reporting that she is feeling very optimistic about the current discharge plan which is for her to discharge to her mother within the next 48 hours. We discussed the plan for the Abilify which is an oral medication to have last dose tomorrow and continue on the injectable q. monthly with next dose 02/09/2022 and to maintain lithium at 300 morning and 600 at night with last level 0.8. She reports that she understands that plan and feels optimistic that she will be able to manage that with her family support. Mental Status Exam MSE Comments: This is a well-nourished well-developed white female in hospital scrubs with appropriate grooming and limited eye contact. No abnormal movements except for mild psychomotor retardation. Cooperative with exam in no acute distress. Speech was more spontaneous and more normal rate and volume when she decides to speak. Mood described as better, affect . Thought process organized. Thought content: Patient denied suicidal or homicidal ideation, there were no delusions reported or noted, she denied auditory or visual hallucinations but concerns for internal preoccupation exists. Attention and concentration were limited and memory appeared unreliable but none were formally tested. She is alert and oriented x3. Insight and judgment are limited, impulse control is improving. Vitals/I&O/Wt Last Vital Signs Temp 97.9 F 01/22/22 06:00 Pulse 95 01/22/22 14:00 Resp 18 01/22/22 14:00 BP 110/69 01/22/22 14:00 Pulse Ox 96 01/22/22 14:00 O2 Del Method 01/22/22 06:00 Data NPU : 01/08/22 16:24 01/08/22 16:24 A&P Assessment and plan (1) Chronic schizophrenia: Status: Acute (2) Acute psychosis: Status: Acute (3) Nicotine dependence, cigarettes, uncomplicated: Status: Acute (4) Homicidal thoughts: Status: Acute Plan This is a 21-year-old female who presents with psychosis, with a history of trauma with multiple hospitalizations in the past including her last 1 here in the fall ultimately 1 last weeks, currently not taking medication. ? Plan: 1.? We restarted previous medication at appropriate doses including lithium 300 mg p.o. twice daily with lithium level at 0.6 we increased lithium to 300 mg in the morning and 600 mg at night recheck a lithium level 5 days later was 0.8 and so we left it at the current dose, Abilify 10 mg p.o. daily with last dose scheduled tomorrow and Abilify Maintena 400 mg IM injection (next injection due 02/09/2022.) 2.? Continue every 15 minute checks for safety. 3.? Encourage individual, group and milieu therapies. 4.? Encourage sober living treatment after discharge at the highest level of care to which she is willing to commit. 5. We will coordinate discharge with mother in the next 48 hours. Involuntary Hold Information 96 Hour Hold: 96 Hour Involuntary Admission: Yes 96 Hour Hold Ending Date: 01/14/22 96 Hour Hold Ending Time: 20:30 Attestations NPU Medical Necessity Statement*: Inpatient hospitalization is medically necessary and the clinically appropriate intervention at this time. We will monitor medications and make changes as indicated. Likely length of stay 1-2 days. Coding Level of Care Code Acute Mail Delivery Supervisor for Jasmin Rubi Diagnoses Chronic schizophrenia F20.9 Acute psychosis F23 Nicotine dependence, cigarettes, uncomplicated F17.210 Homicidal thoughts R45.850
[2022-01-22 20:20] VITALS: BP 109/67; PULSE 83; RESP 17; TEMP 36.8; O2SAT 97
[2022-01-22] MEDS: lithium carbonate 300 mg Capsule 600 MG PO (21:01)
[2022-01-22] MEDS: trazodone 50 mg Tablet PO (21:01)
[2022-01-23 06:00] VITALS: BP 100/67; PULSE 68; RESP 16; TEMP 36.7; O2SAT 98
[2022-01-23] MEDS: ARIPiprazole 10 mg Tablet PO (08:31)
[2022-01-23] MEDS: lithium carbonate 300 mg Capsule PO (08:31)
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
[2022-01-23 13:34] VITALS: BP 100/67; PULSE 68; RESP 16; TEMP 36.7; O2SAT 98
== END 2022-01-23 14:04 | disposition home or self-care (01) | DRG 885 ==
LOC: ER 18:51 → NP 01-09 06:24
PROVIDERS: Physician Assistant; Admitting Provider Psychiatry & Neurology Psychiatry; Emergency Provider Nurse Practitioner Family; Visit Provider Psychiatry & Neurology Psychiatry
DX: F20.9 Schizophrenia, unspecified (principal); F17.210 Nicotine dependence, cigarettes, uncomplicated; R45.850 Homicidal ideations
CPT/HCPCS: 80053; 80178; 80306; 80307; 81001; 84703; 85025; 87086; 96372; 97150; 97165; 99285

== ENCOUNTER 2022-11-10 16:07 | Inpatient (IN) | payer MEDICAID, SELFPAY ==
[2022-11-10 16:13] VITALS: BP 111/74; PULSE 93; TEMP 36.6; O2SAT 99; BMI 25.0
[2022-11-10 16:28] VITALS: BP 116/79; PULSE 94; RESP 18; TEMP 37; O2SAT 99
[2022-11-10 16:36] LABS: Basophils # 0.1 10^3/uL (0.0-0.1); Basophils % 0.4 %; Eosinophils # 0.1 10^3/uL (0.0-0.8); Eosinophils % 0.9 %; Hematocrit 45.8 % (37.0-47.0); Hemoglobin 15.1 g/dL (11.5-15.3); Lymphocytes % 14.3 %; Mean Corpuscular Hemoglobin 30.6 pg (28.0-34.0); Mean Corpuscular Volume 92.9 fl (81-99); Mean Platelet Volume 10.7 fL (7.4-10.4); Monocytes # 0.8 10^3/uL (0.2-0.9); Monocytes % 5.9 %; Neutrophils # 10.87 10^3/uL (1.8-7.7); Neutrophils % 78.1 %; Nucleated Red Blood Cells % 0 %; Platelet Count 224 10^3/cmm (130-400); Red Blood Count 4.93 10^6/uL (4.1-5.3); Red Cell Distribution Width 12.3 % (12.1-15.1); White Blood Count 13.9 10^3/uL (4.0-10.0)
--- NOTE | 2022-11-10 16:48 | PC.PHAR ---
lithium carbonate 300mg take 600mg hs and trazodone 50mg hs prn sleep filled 10/06/22 30d/s- no refills-both rxs picked up 10/07/22 from justina lee pt states not taken in 2 months-pt states she is unsure when she got the abisahil maintena ext shows last filled 09/25/22-notes are made in the pharmacy comments
[2022-11-10 16:54] LABS: Acetaminophen < 5.0 ug/mL (10-30); Alanine Aminotransferase 15 U/L (0-33); Albumin Level 4.4 g/dL (3.5-5.2); Alcohol Level < 10 mg/dL (0-10); Alkaline Phosphatase 86 U/L (35-105); Blood Urea Nitrogen 9 mg/dL (6-20); Carbon Dioxide 20 mmol/L (22-29); Chloride 104 mmol/L (98-107); Globulin 2.9 g/dL (1.3-4.6); Glomerular Filtration Rate 90.5 mL/min (90-130); Glucose 78 mg/dL (65-115); Osmolality Calculated 280 mOsm/kg (285-295); Salicylate < 0.3 mg/dL (3-10); Sodium 136 mmol/L (136-145); Total Bilirubin 0.2 mg/dL (0.15-1.2); Total Protein 7.3 g/dL (6.6-8.7)
[2022-11-10 16:54] LABS: HCG Qualitative Urine. Negative (Negative)
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
[2022-11-10 16:56] LABS: Amphetamines Screen Urine Positive (Negative); Barbiturates Screen Urine Negative (Negative); Benzodiazepines Screen Urine Negative (Negative); Cocaine Screen Urine Negative (Negative); Opiate Screen Urine Negative (Negative); PCP Screen Urine Negative (Negative); THC Screen Urine Positive (Negative)
[2022-11-10 16:56] LABS: Anion Gap 15.8 (5-19); Aspartate Amino Transferase 19 U/L (0-32); Potassium 3.8 mmol/L (3.5-5.1)
[2022-11-10 16:58] VITALS: PULSE 90; TEMP 36.7
[2022-11-10 16:59] LABS: Add Urine Microscopic? YES; Bilirubin Urine Neg (Negative); Blood Urine 2+ (Negative); Glucose Urine UA Norm (Normal); Ketones Urine 1+ (Negative); Leukocyte Esterase Urine Negative (Negative); Nitrate Urine Negative (Negative); Protein Urine Trace (Negative); Urine Appearance SL Hazy (CLEAR); Urine Color Yellow (Yellow); Urobilinogen Urine Norm (Negative); pH Urine 5 (5-7)
[2022-11-10 17:00] LABS: Add Urine Culture? No; Amorphous Sediment Urine 1+ /hpf; Bacteria Urine TRACE /hpf; Fine Granular Casts Urine 0-4 /lpf; RBC Urine 0-4 /hpf (0-2); WBC Urine 0-4 /hpf (0-5)
[2022-11-10 17:01] LABS: Lithium 0.1 mmol/L (0.6-1.2)
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
[2022-11-10] MEDS: LORazepam 2 mg/mL INJ 1 mL 1 MG IM (17:26)
[2022-11-10 18:34] VITALS: BP 120/78; BP 125/77; PULSE 90; PULSE 94; RESP 17; TEMP 36.6; TEMP 36.7; O2SAT 99
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
[2022-11-10 19:50] VITALS: BP 123/79; PULSE 98; RESP 17; TEMP 36.6; O2SAT 99
--- NOTE | 2022-11-10 20:02 | PC.NURSE ---
pt arrived to NPU w/RN and security at side. Upon beginning of shift pt was sitting on bench awaiting assessment to be completed, anxious. Pt denies drug and alcohol use, but tested positive for drug use.
[2022-11-10] MEDS: lithium carbonate 300 mg Capsule 600 MG PO (20:24)
[2022-11-11 06:00] VITALS: BP 95/60; PULSE 89; RESP 16; O2SAT 96
--- NOTE | 2022-11-11 09:00 | P.NPUPN_ITS ---
Subjective NPU Subjective: 21-year-old white female with a history of schizophrenia and methamphetamine abuse admitted with increased agitation and aggression with worsening psychosis after patient having stopped intramuscular Abilify Maintena over the past 2 months. Patient reporting continued presence of hallucinations. She reports no side effects from her medication. She continued to isolate herself on the mehdi eu. No side effects from medication noted. Mental Status Exam MSE Comments: Patient is a white female who appeared her stated age. Her hygiene was poor. Her gait was within normal limits. There was no evidence of any abnormal involuntary motor movements tics or tremors appreciated. Her speech was monotone and quality with significant paucity with diminished volume and decreased rate. Her mood was described as not so good. Her affect was blunted. Her thought process was nonlinear and disorganized. She did appear at times to be responding to internal stimuli. There was no clear evidence of delusional thinking. She had endorsed hearing a voice but could not elaborate. She denied any suicidal or homicidal ideation. Her insight appeared impaired. Her judgment was poor. Her impulse control appeared impaired. Vitals/I&O/Wt Last Vital Signs Temp 98.3 F 11/19/22 19:56 Pulse 88 11/20/22 13:24 Resp 16 11/20/22 13:24 BP 103/55 11/20/22 13:24 Pulse Ox 97 11/20/22 13:24 O2 Del Method Room Air 11/20/22 06:00 Data NPU 11/10/22 16:28 11/10/22 16:28 A&P Assessment and plan (1) Chronic schizophrenia: (2) Methamphetamine abuse: Plan This is a 21-year-old white female with a history of schizophrenia along with a history of methamphetamine abuse admitted with psychosis currently not having been on her antipsychotic for apparently several months. Patient will likely require continued hospitalization for stabilization. 1.?Encourage individual, group and milieu therapy. 2.?Recommend sober living treatment at the highest level of care to which the patient is willing to commit. 3.??? Continue q-15 minute checks for safety.? 4. Oral Abilify restarted, and IM Abilify given. Involuntary Hold Information 96 Hour Hold: 96 Hour Involuntary Admission: Yes 96 Hour Hold Ending Date: 01/14/22 96 Hour Hold Ending Time: 20:30 Attestations NPU Medical Necessity Statement*: Inpatient hospitalization is medically necessary and deemed to be the clinically appropriate intervention at this time.? We will monitor/initiate medications and make changes as indicated.? The patient's likely length of stay 5-7 days. Coding Level of Care Code Acute Code for Chg Fwd Diagnoses Chronic schizophrenia F20.9 Methamphetamine abuse F15.10
[2022-11-11] MEDS: hyDROXYzine 25 mg Capsule 50 MG PO (10:23)
[2022-11-11 13:29] VITALS: BP 93/52; PULSE 105; RESP 16; TEMP 36.8; O2SAT 95
[2022-11-11] MEDS: ARIPiprazole 10 mg Tablet PO (18:01)
[2022-11-11 20:14] VITALS: BP 109/71; PULSE 100; RESP 16; TEMP 37; O2SAT 94
[2022-11-11] MEDS: lithium carbonate 300 mg Capsule 600 MG PO (21:01)
[2022-11-12 06:00] VITALS: BP 115/76; PULSE 86; RESP 17; O2SAT 98
[2022-11-12] MEDS: ARIPiprazole 30 mg Tablet 15 MG PO (08:31)
[2022-11-12 14:00] VITALS: BP 110/63; PULSE 92; RESP 16; TEMP 36.8; O2SAT 95
--- NOTE | 2022-11-12 16:09 | W.PM.NPUPNS ---
Subjective NPU Subjective: 21-year-old white female with a history of schizophrenia and methamphetamine abuse admitted with increased agitation and aggression with worsening psychosis after patient having stopped intramuscular Abilify Maintena over the past 2 months. Patient had reported that she was feeling better. She did have occasional vocal outburst yesterday and appeared to have frequent shifts in agitation and reported that she did continue to hear things. Patient reported that she would be agreeable to considering Abilify intramuscularly once a month if she did not have to go so far to receive her shot. She had expressed the possibility of having a nurse through a primary care physician in her area prescribed provide the shot on a monthly basis. She had reported no side effects from her oral and Abilify at this time. Mental Status Exam MSE Comments: Patient is a white female who appeared her stated age. Her hygiene was poor. Her gait was within normal limits. There was no evidence of any abnormal involuntary motor movements tics or tremors appreciated. Her speech was monotone and quality with significant paucity of speech with diminished volume and decreased rate. Her mood was described as okay. Her affect was blunted and mood incongruent. Her thought process was nonlinear and disorganized. She did appear at times to be responding to internal stimuli. There was no clear evidence of delusional thinking. She had endorsed hearing a voice but was unable to described what they were saying to her. She denied any suicidal or homicidal ideation. Her insight appeared impaired. Her judgment was poor. Her impulse control appeared impaired. Vitals/I&O/Wt Last Vital Signs Temp 98.2 F 11/12/22 14:00 Pulse 92 11/12/22 14:00 Resp 16 11/12/22 14:00 BP 110/63 11/12/22 14:00 Pulse Ox 95 11/12/22 14:00 O2 Del Method Room Air 11/12/22 06:00 Weight last 48 hrs Weight 68.039 kg Data NPU 11/10/22 16:28 11/10/22 16:28 A&P Assessment and plan (1) Chronic schizophrenia: (2) Methamphetamine abuse: Plan This is a 21-year-old white female with a history of schizophrenia along with a history of methamphetamine abuse admitted with psychosis currently not having been on her antipsychotic for apparently several months. Patient will likely require continued hospitalization for stabilization. 1.?Encourage individual, group and milieu therapy. 2.?Recommend sober living treatment at the highest level of care to which the patient is willing to commit. 3.??? Continue q-15 minute checks for safety.? 4. Increase oral abilify to 15mg daily with Abilify IM 400mg begin tommorow to target psychosis. Involuntary Hold Information 96 Hour Hold: 96 Hour Involuntary Admission: Yes 96 Hour Hold Ending Date: 01/14/22 96 Hour Hold Ending Time: 20:30 Attestations NPU Medical Necessity Statement*: Inpatient hospitalization is medically necessary and deemed to be the clinically appropriate intervention at this time.? We will monitor/initiate medications and make changes as indicated.? She will be in the hospital for over 2 midnights.? The patient's likely length of stay 7-10 days. Coding Level of Care Code Acute Code for Chg Fwd Diagnoses Chronic schizophrenia F20.9 Methamphetamine abuse F15.10
[2022-11-12] MEDS: lithium carbonate 300 mg Capsule 600 MG PO (20:13)
[2022-11-12 21:14] VITALS: BP 114/66; PULSE 87; RESP 16; TEMP 36.8; O2SAT 98
[2022-11-13 06:00] VITALS: BP 96/60; PULSE 79; RESP 16; O2SAT 95
[2022-11-13] MEDS: ARIPiprazole 30 mg Tablet 15 MG PO (08:44)
--- NOTE | 2022-11-13 09:59 | PC.NURSE ---
Patient came up to the nurse and stated that she feels like the world is up against her. Patient was tearful. Patient went on to say that she doesn't want the Abilify injection, that she had told the doctor about just wanting the pill. When questioned about feeling like the world is against her, she said that she didn't feel like we are against her, or anybody on the outside.
[2022-11-13 14:00] VITALS: BP 111/72; PULSE 98; RESP 15; TEMP 36.9; O2SAT 96
[2022-11-13] MEDS: ARIPiprazole Maintena 400 MG IM (16:36)
[2022-11-13] MEDS: nicotine 2 mg Gum BUCCAL (16:36)
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
[2022-11-13] MEDS: lithium carbonate 300 mg Capsule 600 MG PO (20:11)
[2022-11-13 20:52] VITALS: BP 117/73; PULSE 89; RESP 15; TEMP 36.6; O2SAT 95
--- NOTE | 2022-11-13 21:41 | PC.NURSE ---
IN ROOM RESTING IN BED. STATES SHE HAD A GOOD DAY OVERALL IS HOPING THE DR. LETS HER LEAVE SOON. PT WAS INFORMED THAT DR WOULD SEE HER AND HER DISCHARGE PLAN IS ALREADY IN MOTION. PT IS PLEASED TO HEAR. PT DENIES PAIN, SI/HI AND AVH AT THIS TIME. PT CONTINUES TO WITHDRAW AND ISOLATE TO ROOM. MED COMPLIANT.
[2022-11-14 06:00] VITALS: PULSE 98; RESP 16; TEMP 36.8; O2SAT 98
[2022-11-14] MEDS: ARIPiprazole 30 mg Tablet 15 MG PO (09:46)
[2022-11-14 14:00] VITALS: BP 107/64; PULSE 96; RESP 16; TEMP 36.3; O2SAT 96
--- NOTE | 2022-11-14 14:37 | P.NPUPN_ITS ---
Subjective NPU Subjective: Patient presented today reporting that she is very excited about being able to get the 2-month injection when she leaves here. We discussed monitoring her for at least over the weekend to make sure she is having appropriate progress. We discussed working with her family and the social work team to make sure that she has follow-up in place. We reached out to the pharmacy and the pharmacy reports that their supplier does have the injection in stock and so when the prescription arrives they will be able to ensure that she has not on time. Otherwise she reports that she is adjusting to being back on the medication and is feeling a little tired. Mental Status Exam MSE Comments: This is a well-nourished well-developed white female in hospital scrubs with appropriate grooming and limited eye contact. No abnormal movements except for mild psychomotor retardation. Cooperative with exam in mild to moderate distress. Speech was decreased rate and volume. Mood described as okay, affec t odd. Thought process organized, with some apparent thought blocking present. Thought content: Patient denied suicidal or homicidal ideation, there were no delusions reported and no clear delusions noted, she denied auditory or visual hallucinations, but she reports voices returned with the discontinuation of the medication and some internal preoccupation is apparent. Attention and concentration were limited and memory appeared reliable but none were formally tested. She is alert and oriented x3. Insight and judgment are limited, impulse control is impaired. Vitals/I&O/Wt Last Vital Signs Temp 98.2 F 11/14/22 06:00 Pulse 98 11/14/22 06:00 Resp 16 11/14/22 06:00 BP 117/73 11/13/22 20:52 Pulse Ox 98 11/14/22 06:00 O2 Del Method Room Air 11/14/22 06:00 Data NPU 11/10/22 16:28 11/10/22 16:28 A&P Assessment and plan (1) Chronic schizophrenia: (2) Methamphetamine abuse: Plan This is a 21-year-old white female with a history of schizophrenia along with a history of methamphetamine abuse admitted with psychosis currently not having been on her antipsychotic for apparently several months. Patient will likely require continued hospitalization for stabilization. 1.?Encourage individual, group and milieu therapy. 2.?Recommend sober living treatment at the highest level of care to which the patient is willing to commit. 3.??? Continue q-15 minute checks for safety.? 4. Increase oral abilify to 15mg daily with Abilify IM 400mg given today to target psychosis. With a plan to discharge on Abilify Asimtufii Involuntary Hold Information 96 Hour Hold: 96 Hour Involuntary Admission: Yes 96 Hour Hold Ending Date: 01/14/22 96 Hour Hold Ending Time: 20:30 Attestations NPU Medical Necessity Statement*: Inpatient hospitalization is medically necessary and deemed to be the clinically appropriate intervention at this time.? We will monitor/initiate medications and make changes as indicated.? The patient's likely length of stay 4-6 days. Coding Level of Care Code Acute Code for g Fwd Diagnoses Chronic schizophrenia F20.9 Methamphetamine abuse F15.10
[2022-11-14] MEDS: nicotine 2 mg Gum BUCCAL (15:03)
[2022-11-14] MEDS: lithium carbonate 300 mg Capsule 600 MG PO (20:25)
[2022-11-14 20:44] VITALS: BP 97/68; PULSE 89; RESP 17; TEMP 36.6; O2SAT 98
[2022-11-15 06:00] VITALS: BP 107/66; PULSE 92; RESP 16; O2SAT 98
[2022-11-15] MEDS: ARIPiprazole 30 mg Tablet 15 MG PO (09:00)
--- NOTE | 2022-11-15 12:01 | P.NPUPN_ITS ---
Subjective NPU Subjective: Patient presented today reporting that she is doing okay. She was pretty nervous based on a patient who was pacing the halls and being aggressive. We talked about her family and she reports she has not spoken to her sister that she had thought with or her family in general. She reports that she wants to leave as soon as she can. We talked about the possibility of early next week which made her happy. Mental Status Exam MSE Comments: This is a well-nourished well-developed white female in hospital scrubs with appropriate grooming and limited eye contact. No abnormal movements except for mild psychomotor retardation. Cooperative with exam in mild to moderate distress. Speech was decreased rate and volume. Mood described as decent, affect odd. Thought process organized, with some apparent thought blocking present. Thought content: Patient denied suicidal or homicidal ideation, there were no delusions reported and no clear delusions noted, she denied auditory or visual hallucinations, but she reports voices returned with the discontinuation of the medication and some internal preoccupation is apparent. Attention and concentration were limited and memory appeared reliable but none were formally tested. She is alert and oriented x3. Insight and judgment are limited, i mpulse control is impaired. Vitals/I&O/Wt Last Vital Signs Temp 97.9 F 11/14/22 20:44 Pulse 92 11/15/22 06:00 Resp 16 11/15/22 06:00 BP 107/66 11/15/22 06:00 Pulse Ox 98 11/15/22 06:00 O2 Del Method Room Air 11/15/22 06:00 Data NPU 11/10/22 16:28 11/10/22 16:28 A&P Assessment and plan (1) Chronic schizophrenia: (2) Methamphetamine abuse: Plan This is a 21-year-old white female with a history of schizophrenia along with a history of methamphetamine abuse admitted with psychosis currently not having been on her antipsychotic for apparently several months. Patient will likely require continued hospitalization for stabilization. 1.?Encourage individual, group and milieu therapy. 2.?Recommend sober living treatment at the highest level of care to which the patient is willing to commit. 3.??? Continue q-15 minute checks for safety.? 4. Increase oral abilify to 15mg daily with Abilify IM 400mg given 11/13/2022 to target psychosis. With a plan to discharge on Abilify Asimtufii Involuntary Hold Information 96 Hour Hold: 96 Hour Involuntary Admission: Yes 96 Hour Hold Ending Date: 01/14/22 96 Hour Hold Ending Time: 20:30 Attestations NPU Medical Necessity Statement*: Inpatient hospitalization is medically necessary and deemed to be the clinically appropriate intervention at this time.? We will monitor/initiate medications and make changes as indicated.? The patient's likely length of stay 3-5 days. Coding Level of Care Code Acute Code for Chg Fwd Diagnoses Chronic schizophrenia F20.9 Methamphetamine abuse F15.10
[2022-11-15 14:00] VITALS: BP 115/71; PULSE 93; RESP 18; TEMP 36.7; O2SAT 97
[2022-11-15 20:15] VITALS: BP 101/62; PULSE 98; RESP 16; TEMP 36.9; O2SAT 97
[2022-11-15] MEDS: lithium carbonate 300 mg Capsule 600 MG PO (20:19)
[2022-11-16 06:00] VITALS: BP 96/66; PULSE 94; RESP 16; TEMP 36.7; O2SAT 96
[2022-11-16] MEDS: ARIPiprazole 30 mg Tablet 15 MG PO (08:18)
--- NOTE | 2022-11-16 13:15 | P.NPUPN_ITS ---
Subjective NPU Subjective: Patient presented today reporting that she is hopeful that she can discharge soon. She is still seen to avoid contact with her family but we encouraged her making call to see how they feel she is doing. We discussed the social work came reaching out to her grandmother with whom she lives to get her sense of how she is doing. She reports that part of the problem is she does not have her p omayra with her. To get numbers. We discussed reaching out to the grandmother may be getting some of those numbers and having her speak with Evonne to see how she feels she is doing. Patient is denying any issues with the medication and is reporting that she is feeling a little better. We discussed discharge this week. Mental Status Exam MSE Comments: This is a well-nourished well-developed white female in hospital scrubs with appropriate grooming and limited eye contact. No abnormal movements except for mild psychomotor retardation. Cooperative with exam in mild to moderate distress. Speech was decreased rate and volume. Mood described as decent, affect odd. Thought process mostly organized, with some apparent thought blockin flat cognitive dulling present. Thought content: Patient denied suicidal or homicidal ideation, there were no delusions reported and no clear delusions noted, she denied auditory or visual hallucinations, but she reports voices returned with the discontinuation of the medication and some internal preoccupation is apparent. Attention and concentration were limited and memory appeared reliable but none were formally tested. She is alert and oriented x3. Insight and judgment are limited, impulse control is impaired. Vitals/I&O/Wt Last Vital Signs Temp 98.0 F 11/16/22 06:00 Pulse 94 11/16/22 06:00 Resp 16 11/16/22 06:00 BP 96/66 11/16/22 06:00 Pulse Ox 96 11/16/22 06:00 O2 Del Method Room Air 11/15/22 20:15 Weight last 48 hrs Weight 68.039 kg Data NPU 11/10/22 16:28 11/10/22 16:28 A&P Assessment and plan (1) Chronic schizophrenia: (2) Methamphetamine abuse: Plan This is a 21-year-old white female with a history of schizophrenia along with a history of methamphetamine abuse admitted with psychosis currently not having been on her antipsychotic for apparently several months. Patient will likely require continued hospitalization for stabilization. 1.?Encourage individual, group and milieu therapy. 2.?Recommend sober living treatment at the highest level of care to which the patient is willing to commit. 3.??? Continue q-15 minute checks for safety.? 4. Increase oral abilify to 15mg daily with Abilify IM 400mg given 11/13/2022 to target psychosis. With a plan to discharge on Abilify Asimtufii Involuntary Hold Information 96 Hour Hold: 96 Hour Involuntary Admission: Yes 96 Hour Hold Ending Date: 01/14/22 96 Hour Hold Ending Time: 20:30 Attestations NPU Medical Necessity Statement*: Inpatient hospitalization is medically necessary and deemed to be the clinically appropriate intervention at this time.? We will monitor/initiate medications and make changes as indicated.? The patient's likely length of stay 2-5 days. Coding Level of Care Code Acute Code for Chg Fwd Diagnoses Chronic schizophrenia F20.9 Methamphetamine abuse F15.10
[2022-11-16 13:48] VITALS: BP 106/70; PULSE 92; RESP 15; TEMP 36.8; O2SAT 98
[2022-11-16] MEDS: lithium carbonate 300 mg Capsule 600 MG PO (20:13)
[2022-11-16 21:06] VITALS: BP 110/69; PULSE 79; RESP 16; TEMP 36.6; O2SAT 98
[2022-11-17 06:00] VITALS: BP 104/69; PULSE 94; RESP 16; TEMP 36.6; O2SAT 97
[2022-11-17] MEDS: ARIPiprazole 30 mg Tablet 15 MG PO (08:31)
--- NOTE | 2022-11-17 08:47 | PC.NURSE ---
Patient denies all. Patient reports that she is feeling pretty good today. Patient does appear more alert and optimistic.
[2022-11-17 13:27] VITALS: BP 109/69; PULSE 99; RESP 15; TEMP 36.8; O2SAT 94
--- NOTE | 2022-11-17 17:35 | P.NPUPN_ITS ---
Subjective NPU Subjective: Patient presented today reporting that she is doing okay. She did talk to her grandmother and she reports that there on better terms. She is yet to really identify and address how she is going to avoid the addiction increase which is likely a trigger for her symptoms in addition to avoiding or missing her injection. We continue to discuss a plan for outpatient resources to assist her moving forward. Mental Status Exam MSE Comments: This is a well-nourished well-developed white female in hospital scrubs with appropriate grooming and improving but limited eye contact. No abnormal movemen ts except for mild psychomotor retardation. Cooperative with exam in mild distress. Speech was decreased rate and volume. Mood described as a little better, affect odd and flat. Thought process mostly organized, with less apparent thought blocking with cognitive dulling present. Thought content: Patient denied suicidal or homicidal ideation, there were no delusions reported and no clear delusions noted, she denied auditory or visual hallucinations, but she reports voices returned with the discontinuation of the medication and some internal preoccupation is apparent. Attention and concentration were limited and memory appeared reliable but none were formally tested. She is alert and o riented x3. Insight and judgment are limited, impulse control is impaired. Vitals/I&O/Wt Last Vital Signs Temp 98.2 F 11/17/22 19:53 Pulse 76 11/17/22 19:53 Resp 16 11/17/22 19:53 BP 108/65 11/17/22 19:53 Pulse Ox 97 11/17/22 19:53 O2 Del Method Room Air 11/15/22 20:15 Weight last 48 hrs Weight 68.039 kg Data NPU 11/10/22 16:28 11/10/22 16:28 A&P Assessment and plan (1) Chronic schizophrenia: (2) Methamphetamine abuse: Plan This is a 21-year-old white female with a history of schizophrenia along with a history of methamphetamine abuse admitted with psychosis currently not having been on her antipsychotic for apparently several months. Patient will likely require continued hospitalization for stabilization. 1.?Encourage individual, group and milieu therapy. 2.?Recommend sober living treatment at the highest level of care to which the patient is willing to commit. 3.??? Continue q-15 minute checks for safety.? 4. Increase oral abilify to 15mg daily with Abilify IM 400mg given 11/13/2022 to target psychosis. With a plan to discharge on Abilify Asimtufii 5. We will begin discharge planning for this week. Involuntary Hold Information 96 Hour Hold: 96 Hour Involuntary Admission: Yes 96 Hour Hold Ending Date: 01/14/22 96 Hour Hold Ending Time: 20:30 Attestations NPU Medical Necessity Statement*: Inpatient hospitalization is medically necessary and deemed to be the clinically appropriate intervention at this time.? We will monitor/initiate medications and make changes as indicated.? The patient's likely length of stay 1-4 days. Coding Level of Care Code Acute Code for Chg Fwd Diagnoses Chronic schizophrenia F20.9 Methamphetamine abuse F15.10
[2022-11-17 19:53] VITALS: BP 108/65; PULSE 76; RESP 16; TEMP 36.8; O2SAT 97
[2022-11-17] MEDS: lithium carbonate 300 mg Capsule 600 MG PO (20:25)
[2022-11-18 06:00] VITALS: BP 103/64; PULSE 79; RESP 16; TEMP 36.8; O2SAT 96
[2022-11-18] MEDS: ARIPiprazole 30 mg Tablet 15 MG PO (08:05)
[2022-11-18 13:44] VITALS: BP 119/82; PULSE 101; RESP 17; TEMP 36.9; O2SAT 97
[2022-11-18] MEDS: nicotine 2 mg Gum BUCCAL (16:03)
--- NOTE | 2022-11-18 18:29 | W.PM.NPUPNS ---
Subjective NPU Subjective: Patient presented today reporting that she is feeling better. We discussed the methamphetamine issue. She did endorse taking some with her boyfriend reporting she had never done it before and they were just wondering what was like. We discussed at length the dangers from a mental health standpoint of methamphetamine especially for people with psychotic conditions. We discussed the likelihood that may have triggered this event. Or at least exacerbated the impact of her missing her injection. She reported a plan to not do that again. We discussed the likelihood of discharge on . Mental Status Exam MSE Comments: This is a well-nourished well-developed white female in hospital scrubs with appropriate grooming and improving but limited eye contact. No abnormal movements except for mild psychomotor retardation. Cooperative with exam in mild distress. Speech was decreased rate and volume. Mood described as a little better, affect odd and flat. Thought process mostly organized, with less apparent thought blocking with cognitive dulling present. Thought content: Patient denied suicidal or homicidal ideation, there were no delusions reported and no clear delusions noted, she denied auditory or visual hallucinations, but she reports voices returned with the discontinuation of the medication and some internal preoccupation is apparent. Attention and concentration were limited and memory appeared reliable but none were formally tested. She is alert and oriented x3. Insight and judgment are limited, impulse control is impaired. Vitals/I&O/Wt Last Vital Signs Temp 98.2 F 11/18/22 19:38 Pulse 82 11/18/22 19:38 Resp 16 11/18/22 19:38 BP 99/57 11/18/22 19:38 Pulse Ox 97 11/18/22 19:38 O2 Del Method Room Air 11/18/22 19:38 Data NPU 11/10/22 16:28 11/10/22 16:28 A&P Assessment and plan (1) Chronic schizophrenia: (2) Methamphetamine abuse: Plan This is a 21-year-old white female with a history of schizophrenia along with a history of methamphetamine abuse admitted with psychosis currently not having been on her antipsychotic for apparently several months. Patient will likely require continued hospitalization for stabilization. 1.?Encourage individual, group and milieu therapy. 2.?Recommend sober living treatment at the highest level of care to which the patient is willing to commit. 3.??? Continue q-15 minute checks for safety.? 4. Increase oral abilify to 15mg daily with Abilify IM 400mg given 11/13/2022 to target psychosis. With a plan to discharge on Abilify Asimtufii, but will have to do Abilify Maintena initially because the every 2 month injection will likely not be ready for Medicaid till May 2023. 5. We will begin discharge planning for this week. Involuntary Hold Information 96 Hour Hold: 96 Hour Involuntary Admission: Yes 96 Hour Hold Ending Date: 01/14/22 96 Hour Hold Ending Time: 20:30 Attestations NPU Medical Necessity Statement*: Inpatient hospitalization is medically necessary and deemed to be the clinically appropriate intervention at this time.? We will monitor/initiate medications and make changes as indicated.? The patient's likely length of stay 1-3 days. Coding Level of Care Code Acute Code for Chg Fwd Diagnoses Chronic schizophrenia F20.9 Methamphetamine abuse F15.10
[2022-11-18] MEDS: lithium carbonate 300 mg Capsule 600 MG PO (19:37)
[2022-11-18 19:38] VITALS: BP 99/57; PULSE 82; RESP 16; TEMP 36.8; O2SAT 97
[2022-11-19 06:00] VITALS: BP 107/64; PULSE 78; RESP 16; TEMP 36.8; O2SAT 98
[2022-11-19] MEDS: ARIPiprazole 30 mg Tablet 15 MG PO (09:29)
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
[2022-11-19 14:00] VITALS: BP 97/54; PULSE 75; RESP 16; TEMP 36.9; O2SAT 98
[2022-11-19 19:56] VITALS: BP 95/58; PULSE 74; RESP 16; TEMP 36.8; O2SAT 100
[2022-11-19] MEDS: lithium carbonate 300 mg Capsule 600 MG PO (20:19)
[2022-11-20 06:00] VITALS: BP 103/55; PULSE 88; RESP 16; O2SAT 97
[2022-11-20] MEDS: nicotine 2 mg Gum BUCCAL (08:12)
[2022-11-20] MEDS: ARIPiprazole 30 mg Tablet 15 MG PO (08:30)
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
[2022-11-20 13:24] VITALS: BP 103/55; PULSE 88; RESP 16; O2SAT 97
== END 2022-11-20 14:35 | disposition home or self-care (01) | DRG 885 ==
LOC: ER 17:40 → NP 17:50
PROVIDERS: Admitting Provider Psychiatry & Neurology Psychiatry; Emergency Provider Emergency Medicine; Visit Provider Psychiatry & Neurology Psychiatry
DX: F20.9 Schizophrenia, unspecified (principal); F15.10 Other stimulant abuse, uncomplicated; F12.90 Cannabis use, unspecified, uncomplicated; F17.210 Nicotine dependence, cigarettes, uncomplicated
CPT/HCPCS: 36415; 80053; 80178; 80306; 80307; 81001; 81025; 85025; 96372; 97150; 97165; 99238; 99285; J2060

== ENCOUNTER → 2022-12-18 10:51 | Outpatient (BNVA) | payer OTHER, SELFPAY | PROVIDERS: Visit Provider Nurse Practitioner | DX: Z79.899 Other long term (current) drug therapy (principal) | CPT/HCPCS: 80061; 80178; 83036 ==

== ENCOUNTER 2024-03-09 12:42 | Inpatient (IN) | payer MEDICAID, SELFPAY ==
[2024-03-09 12:43] VITALS: BP 115/81; PULSE 94; RESP 17; TEMP 36.8; O2SAT 98; BMI 22.4
--- NOTE | 2024-03-09 12:58 | W.ED.PSYCHS ---
HPI - Psych General: Chief Complaint: Psychiatric Symptoms Stated Complaint: SI Time Seen by Provider: 03/09/24 12:55 History of Present Illness: 23-year-old female with a history of methamphetamine abuse, lithium use, schizophrenia and nicotine dependence who presents to the emergency room with hallucinations and suicidal and homicidal ideations. She says she has voices telling her to hurt herself and her family but she does not have a plan. She actually says she wishes she had a plan. She has been admitted here before. Related Data Home Medications Medication Instructions Recorded Confirmed aripiprazole (2 month) 960 mg/3.2 960 mg IM .Q2 Months 12/09/23 03/09/24 mL susp, extended rel IM syringe (Abilify Asimtufii) Previous Rx's Medication Instructions Recorded lithium carbonate 300 mg capsule 600 mg (2 x 300 mg) PO BEDTIME 30 11/09/23 days #60 caps Allergies Allergy/AdvReac Type Severity Reaction Status Date / Time No Known Allergies Allergy Verified 01/21/24 13:30 Review of Systems Narrative: Constitutional symptoms: Negative except as documented in HPI. Skin symptoms: Negative except as documented in HPI. Eye symptoms: Negative except as documented in HPI. ENMT symptoms: Negative except as documented in HPI. Respiratory symptoms: Negative except as documented in HPI. Cardiovascular symptoms: Negative except as documented in HPI. Gastrointestinal symptoms: Negative except as documented in HPI. Genitourinary symptoms: Negative except as documented in HPI. Musculoskeletal symptoms: Negative except as documented in HPI. Neurologic symptoms: Negative except as documented in HPI. Psychiatric symptoms: Negative except as documented in HPI. Endocrine symptoms: Negative except as documented in HPI. [facility] ED PFSH: Medical History (Updated 03/09/24 @ 14:25 by Linda Page MD) Methamphetamine use disorder, mild, in early remission [place] use On combination antipsychotic drug therapy Other schizophrenia Nicotine dependence, cigarettes, uncomplicated Psychiatric care Family History Other Diabetes Social History Smoking and tobacco/nicotine status: current every day tobacco/nicotine user cigarettes Packs smoked per day: 1 Years cigarettes smoked: 3 Second hand smoke exposure: Yes Alcohol intake: never Substance/Drug Use: never Adopted: No Caregiver/support person: No Lives independently: No Household members: other Details: grandmother Housing: House Marital status: Single Number of children: 0 Highest education level completed: High School Graduate service: No Current occupational status: disabled Current occupational exposures/hazards: No Pets and animals: Yes Pets & animals: dog(s) Leisure activites: art and reading Sexually active: No Do you think of yourself as: Don't Know Current gender identity: Female Arabella/Sabianism: None Special arabella needs: No Agree to transfusion: Yes Female Reproductive History: Spontaneous abortions: No Physical Exam Narrative: EXAM NARRATIVE: General: Alert. no acute distress Skin: Warm, dry Head: Normocephalic, atraumatic. Neck: Supple, trachea midline. Eye: Extraocular movements are intact. Ears, nose, mouth and throat: Oral mucosa moist. Cardiovascular: Regular rate and rhythm, Normal peripheral perfusion. Respiratory: Lungs are clear to auscultation, respirations are non-labored, breath sounds are equal, Symmetrical chest wall expansion. Gastrointestinal: Soft, Nontender, Non distended, Normal bowel sounds. Musculoskeletal: Normal ROM, no deformity. Neurological: Alert and oriented to person, place, time, and situation, No focal neurological deficit observed. Psychiatric: Cooperative, depressed, expresses suicidal ideation. Course Vital Signs: Vital signs: Vital Signs Temperature 98.2 F 03/09/24 12:43 Pulse Rate 94 03/09/24 12:43 Respiratory Rate 17 03/09/24 12:43 Blood Pressure 115/81 03/09/24 12:43 Pulse Oximetry 98 03/09/24 12:43 Oxygen Delivery Me thod Room Air 03/09/24 12:43 MDM - Psych Medical Decision Making Differential diagnosis: Patient with reported depression and suicidal ideation. concerns for infection, alcohol intoxication, cardiac issues or other medical problems prior to psychiatric admission. Workup: labwork, ekg ordered to evaluate the pathologies and to clear the patient medically prior to psychiatric admission EKG: Time 1345. Rate 89. Normal sinus rhythm, No ST-T changes, no ectopy, normal KS & QRS intervals, This was reviewed and interpreted by myself the ER physician at 1350 Lab Review: Laboratory results were reviewed and interpreted by myself the emergency room physician. Lab review: - Medically cleared. - EKG shows no ischemic changes. - Blood alcohol level is negative, -Tylenol and salicylate levels are negative. - Drug screen is positive for marijuana and amphetamines. - No signs of infection, urinalysis clear and white count is not elevated - No anemia. - BUN and creatinine are within normal limits. Consultation: I spoke with Dr. Figueroa about the patient. He agrees to admission. Chart review: I have reviewed patient's chart and she seems to about once a year have a breakdown with her schizophrenia and ends up needing admitted. This may be related to amphetamine use. Assessment and plan: Schizophrenia Hallucinations Suicidal ideation Psychosis ? IM Luana and IM Eber in the emergency room. -Admission to neuropsychiatric unit for continued evaluation and treatment. - All lab work was reviewed and interpreted personally by myself, the ER physician - Evaluation and treatment of this problem were appropriate in the emergency setting Lab Data 03/09/24 14:08 03/09/24 14:08 Laboratory Results WBC 8.98 10^3/uL (3.29-11.43) 03/09/24 14:08 RBC 4.50 10^6/uL (3.85-5.65) 03/09/24 14:08 Hgb 14.20 g/dL (11.27-16.99) 03/09/24 14:08 Hct 42.9 % (36-47) 03/09/24 14:08 MCV 95.3 fl (85-98) 03/09/24 14:08 MCH 31.6 pg (27-33) 03/09/24 14:08 MCHC 33.1 g/dL (30-55) 03/09/24 14:08 RDW 12.4 % (12.1-15.1) 03/09/24 14:08 Plt Count 254 10^3/cmm (157-399) 03/09/24 14:08 MPV 9.9 fL (7.4-10.4) 03/09/24 14:08 Neut % (Auto) 58.8 % 03/09/24 14:08 Lymph % (Auto) 28.8 % 03/09/24 14:08 [place] % (Auto) 7.8 % 03/09/24 14:08 Eos % (Auto) 3.7 % 03/09/24 14:08 Baso % (Auto) 0.6 % 03/09/24 14:08 Neut # (Auto) 5.28 10^3/uL (1.8-7.7) 03/09/24 14:08 Lymph # (Auto) 2.6 10^3/uL (0.8-4.8) 03/09/24 14:08 [place] # (Auto) 0.7 10^3/uL (0.2-0.9) 03/09/24 14:08 Eos # (Auto) 0.3 10^3/uL (0.0-0.8) 03/09/24 14:08 Baso # (Auto) 0.1 10^3/uL (0.0-0.1) 03/09/24 14:08 Nucleated RBC % (auto) 0 % 03/09/24 14:08 Nucleated RBCs # 0.0 /100WBC 03/09/24 14:08 Sodium 140 mmol/L (136-145) 03/09/24 14:08 Potassium 4.1 mmol/L (3.5-5.1) 03/09/24 14:08 Chloride 104 mmol/L (98-107) 03/09/24 14:08 Carbon Dioxide 25 mmol/L (22-29) 03/09/24 14:08 Anion Gap 15.1 (5-19) 03/09/24 14:08 BUN 12 mg/dL (6-20) 03/09/24 14:08 Creatinine 0.6 mg/dL (0.5-0.9) 03/09/24 14:08 GFR Calculation 123.9 mL/min (90-130) 03/09/24 14:08 Glucose 88 mg/dL (65-115) 03/09/24 14:08 Calculated Osmolality 289 mOsm/kg (285-295) 03/09/24 14:08 Calcium 8.9 mg/dL (8.5-10.5) 03/09/24 14:08 Total Bilirubin 0.4 mg/dL (0.15-1.2) 03/09/24 14:08 AST 20 U/L (0-32) 03/09/24 14:08 ALT 24 U/L (0-33) 03/09/24 14:08 Alkaline Phosphatase 83 U/L (35-105) 03/09/24 14:08 Total Protein 7.1 g/dL (6.6-8.7) 03/09/24 14:08 Albumin 4.4 g/dL (3.5-5.2) 03/09/24 14:08 Globulin 2.7 g/dL (1.3-4.6) 03/09/24 14:08 TSH 1.15 uIU/mL (0.27-4.20) 03/09/24 14:08 HCG, Qual Negative (Negative) 03/09/24 14:08 Urine Color Yellow (Yellow) 03/09/24 14:30 Urine Appearance Clear (CLEAR) 03/09/24 14:30 Urine pH 5.0 (5-7) 03/09/24 14:30 Ur Specific [place] 1.023 (1.005-1.030) 03/09/24 14:30 Urine Protein Negative (Negative) 03/09/24 14:30 Urine Glucose (UA) Negative (Normal) 03/09/24 14:30 Urine Ketones Negative (Negative) 03/09/24 14:30 Urine Blood Negative (Negative) 03/09/24 14:30 Urine Nitrate Negative (Negative) 03/09/24 14:30 Urine Bilirubin Negative (Negative) 03/09/24 14:30 Urine Urobilinogen 0.2 mg/dL (Negative) 03/09/24 14:30 Ur Leukocyte Esterase Trace (Negative) A 03/09/24 14:30 Urine RBC 0-2 /hpf (0-2) 03/09/24 14:30 Urine WBC 6-10 /hpf (0-5) 03/09/24 14:30 Ur Squamous Epith Cells 6-10 /hpf (0-5) 03/09/24 14:30 Amorphous Sediment Not Reportable 03/09/24 14:30 Urine Bacteria Trace /hpf (NONE) 03/09/24 14:30 Hyaline Casts 0-4 /lpf H 03/09/24 14:30 Salicylates < 0.3 mg/dL (3-10) L 03/09/24 14:08 Urine Opiates Screen Negative ng/mL (Negative) 03/09/24 14:30 Acetaminophen < 5.0 ug/mL (10-30) L 03/09/24 14:08 Ur Barbiturates Screen Negative ng/mL (Negative) 03/09/24 14:30 Ur Phencyclidine Scrn Negative ng/mL (Negative) 03/09/24 14:30 Ur Amphetamines Screen Positive ng/mL (Negative) H 03/09/24 14:30 U Benzodiazepines Scrn Negative ng/mL (Negative) 03/09/24 14:30 [place] 0.1 mmol/L (0.6-1.2) L 03/09/24 14:08 Urine Cocaine Screen Negative ng/mL (Negative) 03/09/24 14:30 U Marijuana (THC) Screen Positive ng/mL (Negative) H 03/09/24 14:30 Ethyl Alcohol < 10 mg/dL (0-10) 03/09/24 14:08 No radiology studies performed this visit Discharge Plan Discharge Patient Disposition: Admitted As Inpatient Clinical Impression: Acute psychosis, Suicidal ideation, Chronic schizophrenia Condition: Stable Coding Level of Care Code ED Industrial Truck Mechanic for Jasmin Rubi
--- NOTE | 2024-03-09 13:29 | PC.PHAR ---
pt states last filled Abilify Asimtufii syringe 01/13/24-next dose due 03/14/24. pt states takes lithium carbonate 300mg at bedtime last fill 01/26/24 30ds
--- NOTE | 2024-03-09 13:45 | ECG_ITS ---
[facility] 2024[facility]09 Pat Name: Evonne Garcia Department: Room: Gender: Female Computer Systems Manager: : 2000 Requested By: Linda Cartagena Order Number: [id number] Garcia MD: Jude Guerrero M.D. Measurements Intervals [place] Rate: 89 P: 59 CO: 134 QRS: 44 QRSD: 84 T: 63 QT: 337 QTc: 411 Interpretive Statements SINUS RHYTHM No previous ECG available for comparison Electronically Signed On 03-10-2024 22:01:47 INDUSTRIAL CUSTODIAN by Jude Guerrero M.D. [email or web address]
[2024-03-09 14:44] LABS: Basophils # 0.1 10^3/uL (0.0-0.1); Basophils % 0.6 %; Eosinophils # 0.3 10^3/uL (0.0-0.8); Eosinophils % 3.7 %; Hematocrit 42.9 % (36-47); Lymphocytes # 2.6 10^3/uL (0.8-4.8); Lymphocytes % 28.8 %; Mean Corpuscular HGB Conc 33.1 g/dL (30-55); Mean Corpuscular Hemoglobin 31.6 pg (27-33); Mean Corpuscular Volume 95.3 fl (85-98); Mean Platelet Volume 9.9 fL (7.4-10.4); Monocytes # 0.7 10^3/uL (0.2-0.9); Monocytes % 7.8 %; Neutrophils # 5.28 10^3/uL (1.8-7.7); Neutrophils % 58.8 %; Nucleated Red Blood Cells % 0 %; Platelet Count 254 10^3/cmm (157-399); Red Cell Distribution Width 12.4 % (12.1-15.1); White Blood Count 8.98 10^3/uL (3.29-11.43)
[2024-03-09 14:48] LABS: Bilirubin Urine Negative (Negative); Blood Urine Negative (Negative); Glucose Urine UA Negative (Normal); Ketones Urine Negative (Negative); Leukocyte Esterase Urine Trace (Negative); Nitrate Urine Negative (Negative); Protein Urine Negative (Negative); Specific Gravity, Urine 1.023 (1.005-1.030); Urine Appearance Clear (CLEAR); Urine Color Yellow (Yellow); Urobilinogen Urine 0.2 mg/dL (Negative)
[2024-03-09] MEDS: LORazepam 2 mg/mL INJ 1 mL IM (14:53)
[2024-03-09 14:55] LABS: HCG, Serum Qual Negative (Negative)
[2024-03-09 14:55] LABS: Bacteria Urine Trace /hpf; Hyaline Casts Urine 0-4 /lpf; RBC Urine 0-2 /hpf (0-2)
[2024-03-09 14:59] LABS: Amphetamines Screen Urine Positive (Negative); Barbiturates Screen Urine Negative (Negative); Benzodiazepines Screen Urine Negative (Negative); Cocaine Screen Urine Negative (Negative); Opiate Screen Urine Negative (Negative); PCP Screen Urine Negative (Negative); THC Screen Urine Positive (Negative)
[2024-03-09 15:08] LABS: Lithium 0.1 mmol/L (0.6-1.2)
[2024-03-09 15:16] LABS: Alanine Aminotransferase 24 U/L (0-33); Albumin Level 4.4 g/dL (3.5-5.2); Alkaline Phosphatase 83 U/L (35-105); Anion Gap 15.1 (5-19); Aspartate Amino Transferase 20 U/L (0-32); Blood Urea Nitrogen 12 mg/dL (6-20); Calcium 8.9 mg/dL (8.5-10.5); Carbon Dioxide 25 mmol/L (22-29); Chloride 104 mmol/L (98-107); Creatinine Clr Calc Pharmacy 135.1185; Globulin 2.7 g/dL (1.3-4.6); Glomerular Filtration Rate 123.9 mL/min (90-130); Glucose 88 mg/dL (65-115); Osmolality Calculated 289 mOsm/kg (285-295); Potassium 4.1 mmol/L (3.5-5.1); Sodium 140 mmol/L (136-145); Thyroid Stimulating Hormone 1.15 uIU/mL (0.27-4.20); Total Bilirubin 0.4 mg/dL (0.15-1.2); Total Protein 7.1 g/dL (6.6-8.7)
[2024-03-09 15:17] LABS: Acetaminophen < 5.0 ug/mL (10-30); Alcohol Level < 10 mg/dL (0-10); Salicylate < 0.3 mg/dL (3-10)
[2024-03-09 16:57] VITALS: BP 109/76; PULSE 131; RESP 16; TEMP 36.8; O2SAT 99
[2024-03-09 17:16] VITALS: BP 112/76; PULSE 121; O2SAT 99
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
[2024-03-09 19:25] LABS: Covid PCR NEGATIVE (Negative); Influenza A NEGATIVE (Negative); Influenza B NEGATIVE (Negative); Respiratory Syncytial Virus Ce NEGATIVE (Negative)
[2024-03-09 20:03] VITALS: BP 102/54; PULSE 102; RESP 16; TEMP 36.7; O2SAT 97
[2024-03-09 20:07] LABS: Estmated Average Glucose 97
[2024-03-09] MEDS: lithium carbonate 300 mg Capsule 600 MG PO (21:09)
[2024-03-10 06:00] VITALS: BP 105/65; PULSE 110; RESP 18; TEMP 36.6; O2SAT 97
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
[2024-03-10 14:00] VITALS: BP 107/68; PULSE 101; RESP 16; TEMP 36.7; O2SAT 97
[2024-03-10 19:40] VITALS: BP 105/70; PULSE 118; RESP 16; TEMP 36.8; O2SAT 98
[2024-03-10] MEDS: lithium carbonate 300 mg Capsule 600 MG PO (21:33)
[2024-03-11 06:00] VITALS: BP 102/68; PULSE 105; RESP 18; TEMP 36.9; O2SAT 96
[2024-03-11] MEDS: hyDROXYzine 25 mg Capsule 50 MG PO ×2 (10:33→20:25)
[2024-03-11 14:00] VITALS: BP 93/58; PULSE 102; RESP 18; TEMP 36.8; O2SAT 93
--- NOTE | 2024-03-11 14:43 | P.NPUPN_ITS ---
Subjective NPU 2 Subjective: Patient presented today reporting that she is doing fine. She has been lobbying for discharge per staff reports and direct conversation. She is current on her injection but reports that she did have times that she was not so adherent with her lithium. We discussed the risks, benefits and alternatives of continuing her medication as prescribed and she understood and agreed to proceed as is documented in this note. She also identified the fact that she had relapsed and was being dishonest when she denied use. We discussed having her stay here and looking at possibilities of sober living treatment. She denied any side effects of the medication. Mental Status Exam 2 MSE Comments: This is a well-nourished well-developed white female in hospital scrubs with adequate grooming and limited eye contact. No abnormal movements except for psychomotor retardation. Cooperative with exam in mild distress. Speech was limited and decreased rate and volume. Mood described as okay, affect odd and almost disinterested. Thought process linear. Thought content: Patient denied suicidal or homicidal ideation, there were no delusions reported and but clear paranoia noted, she denied auditory or visual hallucinations but concerns for internal preoccupation exists and she was endorsing significant auditory hallucinations at admission. Attention and concentration were limited and memory appeared unreliable but none were formally tested. She is alert and oriented x person and place but not really oriented to purpose. Insight and judgment are impaired, impulse control is impaired. Vitals/I&O/Wt Last Vital Signs Temp 98.5 F 03/11/24 06:00 Pulse 105 H 03/11/24 06:00 Resp 18 03/11/24 06:00 BP 102/68 03/11/24 06:00 Pulse Ox 96 03/11/24 06:00 O2 Del Method Room Air 03/11/24 06:00 Data NPU 03/09/24 14:08 03/09/24 14:08 A&P Assessment and plan (1) Chronic schizophrenia: (2) Methamphetamine abuse: Plan This is a 23-year-old white female with a history of schizophrenia along with a history of methamphetamine use disorder who is well-known to the unit from past hospitalizations with the same presentation is admitted with psychosis active methamphetamine use and unclear history of whether or not she has been consistent with her medication. 1.???Encourage individual, group and milieu therapy. 2.???Recommend sober living treatment at the highest level of care to which the patient is willing to commit. 3.???Continue q-15 minute checks for safety.? 4. Evaluate recent adherence to medications and restart oral Abilify as well as Abilify IM to target psychosis based on findings. On long-acting injectable with next injection due 03/22/2024 the Abilify Asimtufii 960 mg every 2 months. Continue other medications namely lithium. 5. Consult podiatry for ulcer on foot. Appreciate consult and will follow recommendations as indicated. Involuntary Hold Information 2 96 Hour Hold: 96 Hour Involuntary Admission: Yes Other Hold: Hold End Date: 03/16/24 Attestations NPU 2 Medical Necessity Statement*: Inpatient hospitalization is medically necessary and deemed to be the clinically appropriate intervention at this time.? We will monitor/initiate medications and make changes as indicated. The patient's likely length of stay 7-10 days. Coding Level of Care Code Acute Code for [facility] Diagnoses Chronic schizophrenia F20.9 Methamphetamine abuse F15.10
[2024-03-11 19:33] VITALS: BP 103/69; PULSE 92; RESP 18; TEMP 37.1; O2SAT 98
[2024-03-11] MEDS: trazodone 50 mg Tablet PO (20:25)
[2024-03-11] MEDS: lithium carbonate 300 mg Capsule 600 MG PO (20:25)
--- NOTE | 2024-03-11 21:39 | PC.NURSE ---
IN BED RESTING. DENIES PAIN. DENIES SI/HI AND AVH AT THIS TIME. EVASIVE WITH ASSESSMENT. RATES ANXIETY AND DEPRESSION 0/10. STATES THAT SHE IS WANTING TO LEAVE. PT WANTED SOMETHING FOR SLEEP AND ANXIETY, EVEN THO SHE RATED HAVING NO ANXIETY. VISTARIL 50MG ORDERED FOR ANXIETY. TRAZODONE 50 MG GIVEN FOR SLEEP. VERY FLAT AFFECT, GUARDED WITH STAFF. SUPPORT VOICED.
[2024-03-12 05:54] VITALS: BP 101/66; PULSE 103; RESP 18; TEMP 37.1; O2SAT 96
--- NOTE | 2024-03-12 07:54 | PC.NURSE ---
Patient denies avh and si/hi. She does not endorse depression, although she has a flat affect this morning. Denies any pain or issues with bowel movements. Patient does appear to be evasive during assessment, but is calm.
--- NOTE | 2024-03-12 08:23 | P.NPUPN_ITS ---
Subjective NPU 2 Subjective: Patient presented today reporting that she is feeling ready to discharge. We had a long discussion about her addiction issues and she was seemingly more upfront about how it is a clear problem. She seemed to focus on the fact that she does not like being here but not understanding that being here is usually the transition point to getting to a rehab or something with someone with significant psychiatric concerns as she does when she is actively using the methamphetamine. We agreed we would work with the social work team on Thursday to look at discharge planning as well as sober living treatment. Mental Status Exam 2 MSE Comments: This is a well-nourished well-developed white female in hospital scrubs with adequate grooming and limited eye contact. No abnormal movements except for psychomotor retardation. Cooperative with exam in mild distress. Speech was limited and decreased rate and volume. Mood described as okay, affect odd and almost disinterested. Thought process linear. Thought content: Patient denied suicidal or homicidal ideation, there were no delusions reported and but clear paranoia noted, she denied auditory or visual hallucinations but concerns for internal preoccupation exists and she was endorsing significant auditory hallucinations at admission. Attention and concentration were limited and memory appeared unreliable but none were formally tested. She is alert and oriented x person and place but not really oriented to purpose. Insight and judgment are impaired, impulse control is impaired. Vitals/I&O/Wt Last Vital Signs Temp 98.7 F 03/12/24 05:54 Pulse 103 H 03/12/24 05:54 Resp 18 03/12/24 05:54 BP 101/66 03/12/24 05:54 Pulse Ox 96 03/12/24 05:54 O2 Del Method Room Air 03/12/24 05:54 Data NPU 03/09/24 14:08 03/09/24 14:08 A&P Assessment and plan (1) Chronic schizophrenia: (2) Methamphetamine abuse: Plan This is a 23-year-old white female with a history of schizophrenia along with a history of methamphetamine use disorder who is well-known to the unit from past hospitalizations with the same presentation is admitted with psychosis active methamphetamine use and unclear history of whether or not she has been consistent with her medication. 1.???Encourage individual, group and milieu therapy. 2.???Recommend sober living treatment at the highest level of care to which the patient is willing to commit. She identified addiction as the issue that leads to her being here but also use that is an argument for why she should be discharged. 3.???Continue q-15 minute checks for safety.? 4. Evaluate recent adherence to medications and restart oral Abilify as well as Abilify IM to target psychosis based on findings. On long-acting injectable with next injection due 03/22/2024 the Abilify Asimtufii 960 mg every 2 months. Continue other medications namely lithium. 5. Consult podiatry for ulcer on foot. Appreciate consult and will follow recommendations as indicated. Involuntary Hold Information 2 96 Hour Hold: 96 Hour Involuntary Admission: Yes Other Hold: Hold End Date: 03/16/24 Attestations NPU 2 Medical Necessity Statement*: Inpatient hospitalization is medically necessary and deemed to be the clinically appropriate intervention at this time.? We will monitor/initiate medications and make changes as indicated. The patient's likely length of stay 7-10 days. Coding [facility] Chronic schizophrenia F20.9 Methamphetamine abuse F15.10
[2024-03-12] MEDS: hyDROXYzine 25 mg Capsule 50 MG PO (13:19)
[2024-03-12 14:00] VITALS: BP 109/72; PULSE 106; RESP 18; TEMP 36.5; O2SAT 98
[2024-03-12 19:24] VITALS: BP 112/70; PULSE 113; RESP 18; TEMP 37.3; O2SAT 97
[2024-03-12] MEDS: OLANZapine 5 mg ODT PO (20:50)
[2024-03-12] MEDS: lithium carbonate 300 mg Capsule 600 MG PO (20:50)
[2024-03-12] MEDS: trazodone 50 mg Tablet PO (20:50)
--- NOTE | 2024-03-12 23:38 | PC.NURSE ---
IN BED RESTING, AFFECT REMAINS FLAT WITH DEPRESSED MOOD. EVASIVE WITH ASSESSMENTS. WITHDRAWN TO ROOM AND ISOLATES, HAS NOT BEEN INTERACTING WITH PEERS OR STAFF. GUARDED WITH STAFF AT TIMES. DENIES PAIN. DENIE SI/HI AND AVH AT THIS TIME. RATES ANXIETY AND DEPRESSION 0/10 BUT IS OBVIOUSLY DEPRESSED AND THEN REQUESTS MEDICATIONS TO REDUCE ANXIETY. TRAZODONE 50 MG GIVEN ORDERED FOR SLEEP AND ZYDIS 5 MG GIVE ORDERED FOR INCREASED ANXIETY. SUPPORT VOICED. ENCOURAGED TO INTERACT WITH PEERS, GO TO GROUPS AND WATCH TV. PT DECLINED.
[2024-03-13 05:52] VITALS: BP 106/68; PULSE 95; RESP 18; TEMP 37.2; O2SAT 98; BMI 24.5
[2024-03-13] MEDS: hyDROXYzine 25 mg Capsule 50 MG PO (10:19)
--- NOTE | 2024-03-13 10:29 | P.NPUPN_ITS ---
Subjective NPU 2 Subjective: Patient presented today reporting that she continues to be interested in discharge sooner rather than later. She spent much of our time together inquiring about the certainty of discharge on Thursday. We discussed the fact that we had a conversation about Thursday being the earliest that discharge could be possible but that we were not leaning towards discharge and that we were truly hopeful that we could get some movement in her commitment to a recovery based treatment after discharge. She denied any side effects to the medication Mental Status Exam 2 MSE Comments: This is a well-nourished well-developed white female in hospital scrubs with adequate grooming and limited eye contact. No abnormal movements except for psychomotor retardation. Cooperative with exam in mild distress. Speech was limited and decreased rate and volume. Mood described as okay, affect odd and almost disinterested. Thought process linear. Thought content: Patient denied suicidal or homicidal ideation, there were no delusions reported and but clear paranoia noted, she denied auditory or visual hallucinations but concerns for internal preoccupation exists and she was endorsing significant auditory hallucinations at admission. Attention and concentration were limited and memory appeared unreliable but none were formally tested. She is alert and oriented x person and place but not really oriented to purpose. Insight and judgment are impaired, impulse control is impaired. Vitals/I&O/Wt Last Vital Signs Temp 98.9 F 03/13/24 05:52 Pulse 95 03/13/24 05:52 Resp 18 03/13/24 05:52 BP 106/68 03/13/24 05:52 Pulse Ox 98 03/13/24 05:52 O2 Del Method Room Air 03/13/24 05:52 Weight last 48 hrs Weight 66.848 kg Data NPU 03/09/24 14:08 03/09/24 14:08 A&P Assessment and plan (1) Chronic schizophrenia: (2) Methamphetamine abuse: Plan This is a 23-year-old white female with a history of schizophrenia along with a history of methamphetamine use disorder who is well-known to the unit from past hospitalizations with the same presentation is admitted with psychosis active methamphetamine use and unclear history of whether or not she has been consistent with her medication. 1.???Encourage individual, group and milieu therapy. 2.???Recommend sober living treatment at the highest level of care to which the patient is willing to commit. She identified addiction as the issue that leads to her being here but also use that is an argument for why she should be discharged. 3.???Continue q-15 minute checks for safety.? 4. Evaluate recent adherence to medications and restart oral Abilify as well as Abilify IM to target psychosis based on findings. On long-acting injectable with next injection due 03/22/2024 the Abilify Asimtufii 960 mg every 2 months. Continue other medications namely lithium. 5. Consult podiatry for ulcer on foot. Appreciate consult and will follow recommendations as indicated. Involuntary Hold Information 2 96 Hour Hold: 96 Hour Involuntary Admission: Yes Other Hold: Hold End Date: 03/16/24 Attestations NPU 2 Medical Necessity Statement*: Inpatient hospitalization is medically necessary and deemed to be the clinically appropriate intervention at this time.? We will monitor/initiate medications and make changes as indicated. The patient's likely length of stay 7-10 days. Coding [facility] Chronic schizophrenia F20.9 Methamphetamine abuse F15.10
[2024-03-13 14:00] VITALS: BP 124/79; PULSE 125; RESP 18; TEMP 37.2; O2SAT 98
[2024-03-13] MEDS: lithium carbonate 300 mg Capsule 600 MG PO (21:17)
[2024-03-13 21:29] VITALS: BP 114/68; PULSE 92; RESP 18; TEMP 36.8; O2SAT 98
[2024-03-14 06:00] VITALS: BP 105/67; PULSE 89; RESP 16; TEMP 36.7; O2SAT 98
--- NOTE | 2024-03-14 09:57 | PC.NURSE ---
FLAT AFFECT NOTED AND DEPRESSED MOOD. DENIES SI/HI AND AVH AT THIS TIME. EVASIVE WITH ASSESSMENT. RATES ANXIETY AND DEPRESSION 0/10. STATES SHE SLEPT WELL. REPORTS SHE WOULD LIKE TO LEAVE AND THATS HER GOAL. ALL QUESTIONS ANSWERED AND SUPPORT VOICED.
[2024-03-14] MEDS: hyDROXYzine 25 mg Capsule 50 MG PO (13:28)
--- NOTE | 2024-03-14 13:29 | PC.NURSE ---
Patient reports anxiety, 08/11. This nurse administered vistaril 50mg PO.
[2024-03-14 14:00] VITALS: BP 108/73; PULSE 91; RESP 18; TEMP 37.8; O2SAT 96
[2024-03-14 20:10] VITALS: BP 117/74; PULSE 108; RESP 19; TEMP 37.2; O2SAT 97
[2024-03-14] MEDS: lithium carbonate 300 mg Capsule 600 MG PO (20:42)
[2024-03-14] MEDS: trazodone 50 mg Tablet PO (20:42)
--- NOTE | 2024-03-14 21:02 | P.NPUPN_ITS ---
Subjective NPU 2 Subjective: Patient presented today reporting that she is feeling all right. She continued to identify that going home with her desired option but she can give no ideas about what things would look like and how she would avoid continued methamphetamine use given the likely implication that is having in her mental health. She reports that she is tolerating the reintroduction of the lithium which she reports she was intermittent with at home. Endorsing that she is missing some doses here and there. We discussed making sure she gets the second Abilify Asimtufii injection this week. She continues to be resistant to clear drug and alcohol treatment. Mental Status Exam 2 MSE Comments: This is a well-nourished well-developed white female in hospital scrubs with adequate grooming and limited eye contact. No abnormal movements except for psychomotor retardation. Cooperative with exam in mild distress. Speech was limited and decreased rate and volume. Mood described as okay, affect odd and almost disinterested. Thought process linear. Thought content: Patient denied suicidal or homicidal ideation, there were no delusions reported and but clear paranoia noted, she denied auditory or visual hallucinations but concerns for internal preoccupation exists and she was endorsing significant auditory hallucinations at admission. Attention and concentration were limited and memory appeared unreliable but none were formally tested. She is alert and oriented x person and place but not really oriented to purpose. Insight and judgment are impaired, impulse control is impaired. Vitals/I&O/Wt Last Vital Signs Temp 98.9 F 03/14/24 20:10 Pulse 108 H 03/14/24 20:10 Resp 19 H 03/14/24 20:10 BP 117/74 03/14/24 20:10 Pulse Ox 97 03/14/24 20:10 O2 Del Method Room Air 03/14/24 20:10 Weight last 48 hrs Weight 66.848 kg Data NPU 03/09/24 14:08 03/09/24 14:08 A&P Assessment and plan (1) Chronic schizophrenia: (2) Methamphetamine abuse: Plan This is a 23-year-old white female with a history of schizophrenia along with a history of methamphetamine use disorder who is well-known to the unit from past hospitalizations with the same presentation is admitted with psychosis active methamphetamine use and unclear history of whether or not she has been consistent with her medication. 1.???Encourage individual, group and milieu therapy. 2.???Recommend sober living treatment at the highest level of care to which the patient is willing to commit. She identified addiction as the issue that leads to her being here but also use that is an argument for why she should be discharged. 3.???Continue q-15 minute checks for safety.? 4. Evaluate recent adherence to medications and restart oral Abilify as well as Abilify IM to target psychosis based on findings. On long-acting injectable with next injection due 03/22/2024 the Abilify Asimtufii 960 mg every 2 months. Continue other medications namely lithium. Next injection due this week. 5. Consult podiatry for ulcer on foot. Appreciate consult and will follow recommendations as indicated. 6. Treatment team working with family to obtain collateral information about how things have truly been recently. Involuntary Hold Information 2 96 Hour Hold: 96 Hour Involuntary Admission: Yes Other Hold: Hold End Date: 03/16/24 Attestations NPU 2 Medical Necessity Statement*: Inpatient hospitalization is medically necessary and deemed to be the clinically appropriate intervention at this time.? We will monitor/initiate medications and make changes as indicated. The patient's likely length of stay 7-10 days. Coding Level of Care Code Acute Code for [facility] Diagnoses Chronic schizophrenia F20.9 Methamphetamine abuse F15.10
[2024-03-15 06:00] VITALS: BP 107/68; PULSE 100; RESP 18; TEMP 36.8; O2SAT 96
[2024-03-15] MEDS: hyDROXYzine 25 mg Capsule 50 MG PO (13:59)
[2024-03-15 14:00] VITALS: BP 106/69; PULSE 97; RESP 18; TEMP 36.8; O2SAT 97
--- NOTE | 2024-03-15 17:46 | P.NPUPN_ITS ---
Subjective NPU 2 Subjective: Patient presented today reporting that she is doing well. She continues to be resistant to the idea of sober living treatment, but seems to be more open to the fact that we have talked to her family and they have significant concerns about her coming home without having active and intense treatment for her addiction. She denied any side effects or medication and expressed an openness to work with the social work team on follow-up plans. Mental Status Exam 2 MSE Comments: This is a well-nourished well-developed white female in hospital scrubs with adequate grooming and limited eye contact. No abnormal movements except for psychomotor retardation. Cooperative with exam in mild distress. Speech was limited and decreased rate and volume. Mood described as okay, affect odd and almost disinterested. Thought process linear. Thought content: Patient denied suicidal or homicidal ideation, there were no delusions reported and but clear paranoia noted, she denied auditory or visual hallucinations but concerns for internal preoccupation exists and she was endorsing significant auditory hallucinations at admission. Attention and concentration were limited and memory appeared unreliable but none were formally tested. She is alert and oriented x person and place but not really oriented to purpose. Insight and judgment are impaired, impulse control is impaired. Vitals/I&O/Wt Last Vital Signs Temp 98.3 F 03/15/24 14:00 Pulse 97 03/15/24 14:00 Resp 18 03/15/24 14:00 BP 106/69 03/15/24 14:00 Pulse Ox 97 03/15/24 14:00 O2 Del Method Room Air 03/15/24 06:00 Data NPU 03/09/24 14:08 03/09/24 14:08 A&P Assessment and plan (1) Chronic schizophrenia: (2) Methamphetamine abuse: Plan This is a 23-year-old white female with a history of schizophrenia along with a history of methamphetamine use disorder who is well-known to the unit from past hospitalizations with the same presentation is admitted with psychosis active methamphetamine use and unclear history of whether or not she has been consistent with her medication. 1.???Encourage individual, group and milieu therapy. 2.???Recommend sober living treatment at the highest level of care to which the patient is willing to commit. She identified addiction as the issue that leads to her being here but also use that is an argument for why she should be discharged. 3.???Continue q-15 minute checks for safety.? 4. Evaluate recent adherence to medications and restart oral Abilify as well as Abilify IM to target psychosis based on findings. On long-acting injectable with next injection due 03/22/2024 the Abilify Asimtufii 960 mg every 2 months. Continue other medications namely lithium. Next injection due 03/17/24. 5. Consult podiatry for ulcer on foot. Appreciate consult and will follow recommendations as indicated. 6. Treatment team working with family to obtain collateral information about how things have truly been recently. Involuntary Hold Information 2 96 Hour Hold: 96 Hour Involuntary Admission: Yes Other Hold: Hold End Date: 03/16/24 Attestations NPU 2 Medical Necessity Statement*: Inpatient hospitalization is medically necessary and deemed to be the clinically appropriate intervention at this time.? We will monitor/initiate medications and make changes as indicated. The patient's likely length of stay 7-10 days. Coding Level of Care Code Acute Code for [facility] Diagnoses Chronic schizophrenia F20.9 Methamphetamine abuse F15.10
[2024-03-15] MEDS: trazodone 50 mg Tablet PO (20:01)
[2024-03-15] MEDS: lithium carbonate 300 mg Capsule 600 MG PO (20:01)
[2024-03-15 20:40] VITALS: BP 114/80; PULSE 100; RESP 16; TEMP 36.8; O2SAT 100
[2024-03-16 06:00] VITALS: BP 126/81; PULSE 91; RESP 16; TEMP 36.7; O2SAT 98
[2024-03-16] MEDS: OLANZapine 5 mg ODT PO (11:06)
--- NOTE | 2024-03-16 13:40 | W.PM.NPUDCS ---
Diagnoses at Discharge Discharge Diagnosis (1) Chronic schizophrenia: Status: Acute (2) Methamphetamine abuse: Status: Acute Reason for Visit Reason for Visit: SI Involuntary Hold Information 96 Hour Hold: 96 Hour Involuntary Admission: Yes Other Hold: Hold End Date: 03/16/24 Mental Status Exam MSE Comments: This is a well-nourished well-developed white female in hospital scrubs with adequate grooming and limited eye contact. No abnormal movements except for psychomotor retardation. Cooperative with exam in mild distress. Speech was limited and decreased rate and volume. Mood described as okay, affect odd and almost disinterested. Thought process linear. Thought content: Patient denied suicidal or homicidal ideation, there were no delusions reported and but clear paranoia noted, she denied auditory or visual hallucinations but concerns for internal preoccupation exists and she was endorsing significant auditory hallucinations at admission. Attention and concentration were limited and memory appeared unreliable but none were formally tested. She is alert and oriented x person and place but not really oriented to purpose. Insight and judgment are impaired, impulse control is impaired. Discharge Data Studies Completed and Pending: Laboratory Results WBC 8.98 10^3/uL (3.2 9-11.43) 03/09/24 14:08 RBC 4.50 10^6/uL (3.8 5-5.65) 03/09/24 14:08 Hgb 14.20 g/dL (11.27 -16.99) 03/09/24 14:08 Hct 42.9 % (36-47) 03/09/24 14:08 MCV 95.3 fl (85-98) 03/09/24 14:08 MCH 31.6 pg (27-33) 03/09/24 14:08 MCHC 33.1 g/dL (30-55) 03/09/24 14:08 RDW 12.4 % (12.1-15.1 ) 03/09/24 14:08 Plt Count 254 10^3/cmm (157 -399) 03/09/24 14:08 MPV 9.9 fL (7.4-10.4) 03/09/24 14:08 Neut % (Auto) 58.8 % 03/09/24 14:08 Lymph % (Auto) 28.8 % 03/09/24 14:08 [place] % (Auto) 7.8 % 03/09/24 14:08 Eos % (Auto) 3.7 % 03/09/24 14:08 Baso % (Auto) 0.6 % 03/09/24 14:08 Neut # (Auto) 5.28 10^3/uL (1.8 -7.7) 03/09/24 14:08 Lymph # (Auto) 2.6 10^3/uL (0.8- 4.8) 03/09/24 14:08 [place] # (Auto) 0.7 10^3/uL (0.2- 0.9) 03/09/24 14:08 Eos # (Auto) 0.3 10^3/uL (0.0- 0.8) 03/09/24 14:08 Baso # (Auto) 0.1 10^3/uL (0.0- 0.1) 03/09/24 14:08 Nucleated RBC % (a uto) 0 % 03/09/24 14:08 Nucleated RBCs # 0.0 /100WBC 03/09/24 14:08 Sodium 140 mmol/L (136-1 45) 03/09/24 14:08 Potassium 4.1 mmol/L (3.5-5 .1) 03/09/24 14:08 Chloride 104 mmol/L (98-10 7) 03/09/24 14:08 Carbon Dioxide 25 mmol/L (22-29) 03/09/24 14:08 Anion Gap 15.1 (5-19) 03/09/24 14:08 BUN 12 mg/dL (6-20) 03/09/24 14:08 Creatinine 0.6 mg/dL (0.5-0. 9) 03/09/24 14:08 GFR Calculation 123.9 mL/min (90- 130) 03/09/24 14:08 Glucose 88 mg/dL (65-115) 03/09/24 14:08 Estimat Average Gl ucose 97 03/09/24 14:08 Hemoglobin A1c 5.0 % (4.0-6.0) 03/09/24 14:08 Calculated Osmolal ity 289 mOsm/kg (285- 295) 03/09/24 14:08 Calcium 8.9 mg/dL (8.5-10 .5) 03/09/24 14:08 Total Bilirubin 0.4 mg/dL (0.15-1 .2) 03/09/24 14:08 AST 20 U/L (0-32) 03/09/24 14:08 ALT 24 U/L (0-33) 03/09/24 14:08 Alkaline Phosphata se 83 U/L (35-105) 03/09/24 14:08 Total Protein 7.1 g/dL (6.6-8.7 ) 03/09/24 14:08 Albumin 4.4 g/dL (3.5-5.2 ) 03/09/24 14:08 Globulin 2.7 g/dL (1.3-4.6 ) 03/09/24 14:08 TSH 1.15 uIU/mL (0.27 -4.20) 03/09/24 14:08 HCG, Qual Negative (Negati ve) 03/09/24 14:08 Urine Color Yellow (Yellow) 03/09/24 14:30 Urine Appearance Clear (CLEAR) 03/09/24 14:30 Urine pH 5.0 (5-7) 03/09/24 14:30 Ur Specific Gravit y 1.023 (1.005-1.0 30) 03/09/24 14:30 Urine Protein Negative (Negati ve) 03/09/24 14:30 Urine Glucose (UA) Negative (Normal ) 03/09/24 14:30 Urine Ketones Negative (Negati ve) 03/09/24 14:30 Urine Blood Negative (Negati ve) 03/09/24 14:30 Urine Nitrate Negative (Negati ve) 03/09/24 14:30 Urine Bilirubin Negative (Negati ve) 03/09/24 14:30 Urine Urobilinogen 0.2 mg/dL (Negati ve) 03/09/24 14:30 Ur Leukocyte [place] Trace (Negative) A 03/09/24 14:30 Urine RBC 0-2 /hpf (0-2) 03/09/24 14:30 Urine WBC 6-10 /hpf (0-5) 03/09/24 14:30 Ur Squamous Epith Cells 6-10 /hpf (0-5) 03/09/24 14:30 Amorphous Sediment Not Reportable 03/09/24 14:30 Urine Bacteria Trace /hpf (NONE) 03/09/24 14:30 Hyaline Casts 0-4 /lpf H 03/09/24 14:30 Salicylates < 0.3 mg/dL (3-10 ) L 03/09/24 14:08 Urine Opiates Scre en Negative ng/mL (N egative) 03/09/24 14:30 Acetaminophen < 5.0 ug/mL (10-3 0) L 03/09/24 14:08 Ur Barbiturates Sc reen Negative ng/mL (N egative) 03/09/24 14:30 Ur Phencyclidine S crn Negative ng/mL (N egative) 03/09/24 14:30 Ur Amphetamines Sc reen Positive ng/mL (N egative) H 03/09/24 14:30 U Benzodiazepines Scrn Negative ng/mL (N egative) 03/09/24 14:30 [place] 0.1 mmol/L (0.6-1 .2) L 03/09/24 14:08 Urine Cocaine Scre en Negative ng/mL (N egative) 03/09/24 14:30 U Marijuana (THC) Screen Positive ng/mL (N egative) H 03/09/24 14:30 Ethyl Alcohol < 10 mg/dL (0-10) 03/09/24 14:08 Coronavirus (PCR) Negative (Negati ve) 03/09/24 18:00 Influenza A (PCR) Negative (Negati ve) 03/09/24 18:00 Influenza Type B ( PCR) Negative (Negati ve) 03/09/24 18:00 RSV (PCR) Negative (Negati ve) 03/09/24 18:00 Vitals: Last Vital Signs Temp 98.1 F 03/16/24 06:00 Pulse 91 03/16/24 06:00 Resp 16 03/16/24 06:00 BP 126/81 03/16/24 06:00 Pulse Ox 98 03/16/24 06:00 O2 Del Method Room Air 03/16/24 06:00 Discharge Plan Discharge Patient Disposition: Home Condition: Stable Prescriptions: New trazodone 50 mg Tablet 50 mg PO BEDTIME PRN (Reason: Sleep) 30 Days Qty: 30 1RF olanzapine 5 mg Tablet,Disintegrating 5 mg PO DAILY PRN (Reason: Agitation/Psychosis) 30 Days Qty: 30 1RF hydroxyzine pamoate 25 mg Capsule 50 mg PO Q6H PRN (Reason: Anxiety) 30 Days Qty: 120 1RF Continued lithium carbonate 300 mg capsule 600 mg PO BEDTIME 30 Days Qty: 60 1RF Changed Abilify Asimtufii 960 mg/3.2 mL suspension,extended rel syring 960 mg IM Q2M 56 Days Qty: 3.2 1RF Discharge Orders: Discharge Order (Routine); Ordered 03/16/24 Ordered By: Kade Figueroa Referrals: Radha Munguia PMHNP [Staff Physician] - 03/18/24 9:45 am Discharge Diet: Regular Discharge Activity: Resume usual activity Patient Instructions: Opioid Safety Discharge Attestations NPU Time Spent in Discharge Care*: less than 30 min Specific Discharge Activities: Specific discharge activities: educating patient, discussing with medical case worker/social workers/dc planners, documenting/other paperwork and evaluating patient/reviewing data Coding Level of Care Code Acute Code for [facility] Diagnoses Chronic schizophrenia F20.9 Methamphetamine abuse F15.10
[2024-03-16 14:00] VITALS: BP 126/81; PULSE 91; RESP 16; TEMP 36.7; O2SAT 98
[2024-03-16] MEDS: ARIPIPRAZOLE 960 MG/3.2 ML IM (14:54)
[2024-03-16] MEDS: [UNRECOGNIZED DRUG - OTHER] IM (14:54)
== END 2024-03-16 15:49 | disposition home or self-care (01) | DRG 885 ==
LOC: ER 14:25 → NP 15:24
PROVIDERS: Admitting Provider Psychiatry & Neurology Psychiatry; Emergency Provider Emergency Medicine; Visit Provider Psychiatry & Neurology Psychiatry
DX: F20.9 Schizophrenia, unspecified (principal); F15.10 Other stimulant abuse, uncomplicated; F17.210 Nicotine dependence, cigarettes, uncomplicated
CPT/HCPCS: 0241U; 36415; 80053; 80178; 80306; 80307; 81001; 83036; 84443; 84703; 85025; 93005; 96372; 97150; 97165; 99285; J2060